=== PATIENT | male | born 1950 | race Caucasian/White ===

== ENCOUNTER 2017-03-17 11:51 | Emergency (ER) | payer MEDICARE, MEDICAID ==
[2017-03-17 12:03] VITALS: RESP 18; TEMP 98.3; O2SAT 96; BMI 28.0
--- NOTE | 2017-03-17 13:03 | ED PDOC ---
Arrival/HPI - General Chief Complaint: Trauma Time Seen by Provider: 03/17/17 12:10 Historian: Patient EM Caveat: Other (Poor historian) - History of Present Illness Narrative History of Present Illness (Text): 03/17/17 13:03 66 year old male whose past medical history includes hypertension, diabetes presents to the emergency department for fall at skilled nursing yesterday. As per EMS, patient has a history of CVA with right sided hemiparesis. Patient is a poor historian and unable to provide further history. Time/Duration: 24 hours Symptom Onset: Gradual Past Medical History - Provider Review Nursing Documentation Reviewed: Yes - Infectious Disease Hx of Infectious Diseases: None - Tetanus Immunization Tetanus Immunization: Unknown - Cardiac Hx Cardiac Disorders: Yes Hx Hypertension: Yes - Pulmonary Hx Respiratory Disorders: No - Neurological Hx Neurological Disorder: Yes HX Cerebrovascular Accident: Yes Hx Paralysis: Yes Other/Comment: Aphasia. Epilepsy - HEENT Hx HEENT Disorder: No - Renal Hx Renal Disorder: No - Endocrine/Metabolic Hx Endocrine Disorders: Yes (iddm) Hx Diabetes Mellitus Type 2: Yes - Hematological/Oncological Hx Blood Disorders: No - Integumentary Hx Dermatological Disorder: No - Musculoskeletal/Rheumatological Hx Musculoskeletal Disorders: Yes (right side paralysis) - Gastrointestinal Hx Gastrointestinal Disorders: Yes Hx Gall Bladder Disease: Yes (cholecystitis) - Genitourinary/Gynecological Hx Genitourinary Disorders: No - Psychiatric Hx Psychophysiologic Disorder: No Hx Substance Use: No - Anesthesia Hx Anesthesia Reactions: No - Suicidal Assessment Feels Threatened In Home Enviroment: No Family/Social History - Physician Review Nursing Documentation Reviewed: Yes Family/Social History: Unknown Family HX Smoking Status: Unknown If Ever Smoked Hx Alcohol Use: No Hx Substance Use: No Allergies/Home Meds Allergies/Adverse Reactions: Allergies No Known Allergies Allergy (Verified 08/30/13 15:37) Home Medications: Home Meds Medication Instructions Recorded Confirmed Aspirin [Aspirin Chewable] 81 mg PO DAILY 08/30/13 09/12/13 Atorvastatin [Lipitor] 10 mg PO DIN 08/30/13 09/12/13 Glipizide 5 mg PO DAILY 08/30/13 09/12/13 Insulin Glargine,Hum.rec.anlog 52 unit [facility] 08/30/13 09/12/13 [Lantus] Metoprolol Tartrate 50 mg PO QPM 08/30/13 09/12/13 Metoprolol Tartrate 100 mg PO QAM 08/30/13 09/12/13 Review of Systems - Review of Systems Systems not reviewed;Unavailable: Other (Poor historian) Physical Exam - Physical Exam Narrative Physical Exam (Text): - Physical exam Patient appears age appropriate - Systems Exam Head: Present: Superficial abrasion to posterior occiput, Normocephalic Pupils: Present: PERRL Extraocular Muscles: Present: EOMI Conjunctiva: Present: Normal Mouth: Present: Moist Mucous Membranes Neck: Present: Normal Range of Motion. No: MIDLINE TENDERNESS, Paraspinal Tenderness Respiratory/Chest: Present: Clear to Auscultation, Good Air Exchange. No: Respiratory Distress, Accessory Muscle Use, Tachypnic Cardiovascular: Present: Regular Rate and Rhythm, Normal S1, S2, Peripheral Pulses Present. No: Murmurs Abdomen: Present: Normal Bowel Sounds, No: Tenderness, Peritoneal Signs, Rebound, Guarding, Distention Back: Present: Normal Inspection. No: Midline Tenderness, Paraspinal Tenderness Upper Extremity: Present: Normal Inspection. No: Cyanosis, Edema Lower Extremity: Present: Normal Inspection. No: Edema Neurological: Present: GCS=15, Speech Normal, Right sided hemiparesis (old as per EMS), following commmands without difficulty. Skin: Present: Warm, Dry, Normal Color. No: Rashes Lymphatic: Present: OX3, NI, NC Psychiatric: Present: Alert Vital Signs Reviewed: Yes Vital Signs Temp Pulse Resp BP Pulse Ox 03/17/17 13:07 64 18 168/65 H 96 03/17/17 12:01 98.3 F 66 18 172/68 H 96 Temperature: Afebrile Blood Pressure: Hypertensive Pulse: Regular Respiratory Rate: Normal Appearance: Positive for: Well-Appearing, Non-Toxic, Comfortable Pain Distress: None Medical Decision Making ED Course and Treatment: Impression: 66 year old male whose past medical history includes hypertension, diabetes presents to the emergency department for fall at skilled nursing yesterday. On physical exam, patient has superficial abrasion to posterior occiput, right sided hemiparesis (old as per EMS). Plan: -- CT Head w/o contrast, EKG, Chest X-ray -- Labs -- Reassess and disposition Prior Visits: Notes and results from previous visits were reviewed. Patient last seen in the ED on 08/30/13 for chest pain and shortness of breath, admitted for Chest Pain, Unstable Angina, Hyperglycemia Progress Notes: EKG shows NSR at [address] segment elevations, lateral and precordial t- wave inversions, no changes vs 09/13/13 Chest X-ray read by me shows no pneumothorax, no pneumonia, no cardiomegaly, no infiltrates; No changes vs 08/30/13 PROCEDURE: CT HEAD WITHOUT CONTRAST. Animation Producer : Pippa Hollins MD IMPRESSION: 1. No acute intracranial abnormality. 2. 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 3. Moderate chronic microangiopathic changes. Moderate global parenchymal volume loss, slightly advanced for the patient's age. 03/17/17 14:[address] Herndon in detail, states to dc pt back to outpatient care facility pt in no distress and denies complaints at this time - Lab Interpretations Lab Results: 03/17/17 13:00 03/17/17 13:00 Lab Results 03/17/17 13:00: Sodium 141, Potassium 4.5, Chloride 102, Carbon Dioxide 29, Anion Gap 15, BUN 18, Creatinine 0.9, Est GFR ( Amer) > 60, Est GFR (Non- Af Amer) > 60, Random Glucose 169 H, Calcium 9.6, Total Bilirubin 0.8, AST 24, ALT 51, Alkaline Phosphatase 105, Total Protein 7.9, Albumin 4.1, Globulin 3.8, Albumin/Globulin Ratio 1.1 03/17/17 13:00: PT 10.8, INR 1.00, APTT 32.2 H 03/17/17 13:00: WBC 9.1, RBC 4.71, Hgb 14.5, Hct 42.7, MCV 90.7, MCH 30.8, MCHC 34.0, RDW 13.5, Plt Count 215, MPV 11.2 H, Gran % 61.6, Lymph % (Auto) 31.8, [place] % (Auto) 4.1, Eos % (Auto) 2.3, Baso % (Auto) 0.2, Gran # 5.58, Lymph # 2.9 , [place] # 0.4, Eos # 0.2, Baso # 0.02 - RAD Interpretation Radiology Orders: 03/17/17 12:21 HEAD W/O CONTRAST [CT] Stat CHEST ONE VIEW [RAD] Stat - EKG Interpretation Interpreted by ED Physician: Yes Type: 12 lead EKG - Scribe Statement The provider has reviewed the documentation as recorded by the Galilea Mendoza Provider Scribe Attestation: All medical record entries made by the Chrisibe were at my direction and personally dictated by me. I have reviewed the chart and agree that the record accurately reflects my personal performance of the history, physical exam, medical decision making, and the department course for this patient. I have also personally directed, reviewed, and agree with the discharge instructions and disposition. Disposition/Present on Arrival - Present on Arrival Any Indicators Present on Arrival: No History of DVT/PE: No History of Uncontrolled Diabetes: Yes Urinary Catheter: No History of Decub. Ulcer: No History Surgical Site Infection Following: None - Disposition Have Diagnosis and Disposition been Completed?: Yes Diagnosis: Fall Disposition: HOME/ ROUTINE Disposition Time: 14:35 Patient Plan: Discharge Condition: STABLE Discharge Instructions (ExitCare): Head Injury (ED) Additional Instructions: PLEASE RETURN TO THE EMERGENCY DEPARTMENT FOR NEW OR WORSENING SYMPTOMS. RETURN RIGHT AWAY IF YOU CANNOT FOLLOW UP WITH YOUR PRIMARY CARE DOCTOR, CLINIC, OR SPECIALIST IN 1-2 DAYS. Referrals: Tramaine Herndon MD [Primary Care Provider] - Follow up with primary
[2017-03-17 13:29] LABS: ADD MANUAL DIFF? NO
[2017-03-17 13:41] LABS: ALB/GLOB RATIO 1.1 (1.1-1.8); ALKALINE PHOSPHATASE 105 U/L (38-133); ALT/SGPT 51 U/L (7-56); AST/SGOT 24 U/L (15-59); BILIRUBIN,TOTAL 0.8 mg/dL (0.2-1.3); BLOOD UREA NITROGEN 18 mg/dL (7-21); CALCIUM 9.6 mg/dL (8.4-10.5); CARBON DIOXIDE 29 mmol/L (21-33); CHLORIDE 102 mmol/L (98-107); GFR AFRICAN-AMERICAN > 60; GLUCOSE,RANDOM 169 mg/dL (70-110); POTASSIUM 4.5 mmol/L (3.6-5.0); SODIUM 141 mmol/L (132-148); TOTAL PROTEIN 7.9 g/dL (5.8-8.3)
[2017-03-17 13:48] LABS: BASO # 0.02 K/mm3 (0.0-2.0); BASO % 0.2 % (0.0-3.0); EOS # 0.2 (0.0-0.7); EOS % 2.3 % (1.5-5.0); GRAN # 5.58 (1.4-6.5); GRAN % 61.6 % (50.0-68.0); HEMATOCRIT 42.7 % (42.0-52.0); LYMPH # 2.9 (1.2-3.4); LYMPH % 31.8 % (22.0-35.0); MEAN CELL VOLUME 90.7 fL (80.0-105.0); MEAN CORPUSCULAR HEMOGLOBIN 30.8 pg (25.0-35.0); MEAN PLATELET VOLUME 11.2 fl (7.0-11.0); MONO # 0.4 (0.1-0.6); MONO % 4.1 % (1.0-6.0); PLATELET COUNT 215 10^3/uL (120.0-450.0); RED CELL DISTRIBUTION WIDTH 13.5 % (11.5-14.5); WHITE BLOOD COUNT 9.1 10^3/ul (4.5-11.0)
--- NOTE | 2017-03-17 13:48 | CT ---
PROCEDURE: CT HEAD WITHOUT CONTRAST. HISTORY: Fall COMPARISON: None available. TECHNIQUE: Axial computed tomography images were obtained through the head/brain without intravenous contrast. Radiation dose: Total exam DLP = 734.52 mGy-cm. This CT exam was performed using one or more of the following dose reduction techniques: Automated exposure control, adjustment of the mA and/or kV according to patient size, and/or use of iterative reconstruction technique. FINDINGS: HEMORRHAGE: No intracranial hemorrhage. BRAIN: There is a large left frontal and parietal lobe, and basal ganglia cystic encephalomalacia with volume loss and ex vacuo dilatation of the left lateral ventricle. There is Wallerian degeneration of the pyramidal tract. There are moderate chronic microangiopathic changes. There is no mass, mass effect or abnormal extra-axial fluid collection. VENTRICLES: There is moderate global parenchymal volume loss and proportionate enlargement of the ventricles and cortical sulci. CALVARIUM: There is no calvarial fracture or extracranial soft tissue swelling. PARANASAL SINUSES: There is mild left frontal, scattered ethmoid and mild left maxillary mucosal thickening. MASTOID AIR CELLS: Predominantly clear. OTHER FINDINGS: None. IMPRESSION: 1. No acute intracranial abnormality. 2. 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 3. Moderate chronic microangiopathic changes. Moderate global parenchymal volume loss, slightly advanced for the patient's age.
[2017-03-17 13:53] LABS: PARTIAL THROMBOPLASTIN TIME 32.2 Seconds (23.7-30.8)
[2017-03-17 15:49] VITALS: BP 165/67; PULSE 65
--- NOTE | 2017-03-17 15:57 | RAD ---
PROCEDURE: CHEST RADIOGRAPH, 1 VIEW HISTORY: Cough COMPARISON: 08/30/2013. FINDINGS: LUNGS: The lungs are well inflated and clear. PLEURA: No pneumothorax or pleural fluid seen. CARDIOVASCULAR: Normal. OSSEOUS STRUCTURES: No significant abnormalities. VISUALIZED UPPER ABDOMEN: Normal. OTHER FINDINGS: None. IMPRESSION: No active pulmonary disease.
--- NOTE | 2017-03-17 17:08 | CARD ---
APPROVED REPORT EKG Measurement Heart [id number] <Conclusion> Normal sinus rhythm Possible Left atrial enlargement ST & T wave abnormality, consider anterolateral ischemia Prolonged QT Abnormal ECG
== END 2017-03-17 16:18 | disposition home or self-care (01) ==
LOC: ED 11:51
DX: S09.90XA Unspecified injury of head, initial encounter (principal); W19.XXXA Unspecified fall, initial encounter; I69.351 Hemiplegia and hemiparesis following cerebral infarction affecting right dominant side; I10 Essential (primary) hypertension; E11.9 Type 2 diabetes mellitus without complications; Z79.4 Long term (current) use of insulin

== ENCOUNTER 2017-10-15 12:23 | Emergency (ER) | payer MEDICARE, MEDICAID ==
[2017-10-15 12:24] VITALS: BMI 28.0
[2017-10-15 12:41] VITALS: RESP 18; TEMP 98; O2SAT 98
[2017-10-15 14:04] LABS: BASO # 0.03 K/mm3 (0.0-2.0); BASO % 0.3 % (0.0-3.0); EOS # 0.2 (0.0-0.7); GRAN # 5.73 (1.4-6.5); GRAN % 63.8 % (50.0-68.0); HEMATOCRIT 43.9 % (42.0-52.0); LYMPH # 2.6 (1.2-3.4); LYMPH % 29.3 % (22.0-35.0); MEAN CELL VOLUME 92.8 fl (80.0-105.0); MEAN CORPUSCULAR HEMOGLOBIN 31.5 pg (25.0-35.0); MEAN CORPUSCULAR HGB CONC 33.9 g/dl (31.0-37.0); MEAN PLATELET VOLUME 11.6 fl (7.0-11.0); MONO # 0.4 (0.1-0.6); MONO % 4.6 % (1.0-6.0); RED CELL DISTRIBUTION WIDTH 13.8 % (11.5-14.5)
[2017-10-15 14:44] LABS: ALB/GLOB RATIO 1.2 (1.1-1.8); BILIRUBIN,TOTAL 0.8 mg/dL (0.2-1.3); CALCIUM 9.7 mg/dL (8.4-10.5); GFR AFRICAN-AMERICAN > 60; GLUCOSE,RANDOM 184 mg/dL (70-110); TOTAL PROTEIN 7.9 g/dL (5.8-8.3)
[2017-10-15 14:55] LABS: TROPONIN I 0.02 ng/mL
--- NOTE | 2017-10-15 15:24 | CT ---
PROCEDURE: CT HEAD WITHOUT CONTRAST. HISTORY: head trauma COMPARISON: Noncontrast head CT performed 03/17/17 TECHNIQUE: Axial computed tomography images were obtained through the head/brain without intravenous contrast. Radiation dose: Total exam DLP = 803.39 mGy-cm. This CT exam was performed using one or more of the following dose reduction techniques: Automated exposure control, adjustment of the mA and/or kV according to patient size, and/or use of iterative reconstruction technique. FINDINGS: HEMORRHAGE: No intracranial hemorrhage. BRAIN: Diffuse atrophy with prominence of the ventricles and sulci noted. There is a large left frontal and parietal lobe, and basal ganglia cystic encephalomalacia with volume loss and ex vacuo dilatation of the left lateral ventricle. There are moderate chronic microangiopathic changes. There is no midline shift, mass effect or abnormal extra-axial fluid collection. VENTRICLES: No hydrocephalus. CALVARIUM: Unremarkable. PARANASAL SINUSES: Unremarkable as visualized. No significant inflammatory changes. MASTOID AIR CELLS: Unremarkable as visualized. No inflammatory changes. OTHER FINDINGS: None. 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 Moderate chronic microangiopathic changes. Moderate global parenchymal volume loss, slightly advanced for the patient's age.
--- NOTE | 2017-10-15 15:35 | CT ---
CT maxillofacial bones without IV contrast Indication: Facial trauma Comparison: None Technique: Axial computed tomography images were obtained of the maxillofacial bones without the use of intravenous contrast. Coronal and sagittal reformatted images were generated and reviewed. This CT exam was performed using 1 or more of the falling dose reduction techniques: Automated exposure control, adjustment of the MAA and/or kV according to patient size, and/or use of iterative reconstruction technique. Radiation dose: Total exam DLP = 943.88 mGy-cm. Findings: Right frontal and preseptal soft tissue swelling. The facial bones appear intact without acute displaced fracture. The orbits appear unremarkable. The temporomandibular joints appear located. Mucosal thickening of the ethmoid air cells, left frontal sinus and bilateral maxillary sinuses. No air-fluid levels evident. Please refer to CT head performed concurrently for detailed explanation of intracranial findings. Sub cm submental lymph nodes, nonspecific. Impression: Right frontal and preseptal soft tissue swelling. Paranasal sinus mucosal thickening as above.
[2017-10-15 15:36] LABS: ALKALINE PHOSPHATASE 93 U/L (38-126); ALT/SGPT 50 U/L (7-56); AST/SGOT 31 U/L (17-59); BLOOD UREA NITROGEN 26 mg/dL (7-21); CARBON DIOXIDE 24 mmol/L (21-33); CHLORIDE 106 mmol/L (98-107); POTASSIUM 5.3 mmol/L (3.6-5.0); SODIUM 138 mmol/L (132-148)
--- NOTE | 2017-10-15 15:39 | CT ---
CT cervical spine without IV contrast Indication: Fall Comparison: None available Technique: Axial computed tomography images were obtained of the cervical spine without the use of intravenous contrast. Coronal and sagittal reformatted images were created and reviewed. This CT exam was performed using 1 or more of the falling dose reduction techniques: Automated exposure control, adjustment of the MAA and/or kV according to patient size, and/or use of iterative reconstruction technique. Radiation dose: Total exam DLP = 558.96 mGy-cm. Findings: Straightening of the normal cervical lordosis may be related to muscle spasm or positioning. Multilevel degenerative changes including intervertebral disc space narrowing and osteophyte formation. There is no evidence of acute fracture or subluxation. The prevertebral soft tissues and spinolaminar lines appear intact. The lateral masses are preserved. The dens tip is intact. There is proper alignment of the lateral masses of C1 with the C2 vertebral body. Included portions of the thyroid gland appear unremarkable. Limited included portions of lung apices demonstrates emphysematous changes. Impression: Straightening of the normal cervical lordosis may be related to muscle spasm or positioning. No evidence of acute fracture or subluxation.
--- NOTE | 2017-10-15 16:46 | ED PDOC ---
Arrival/HPI - General Chief Complaint: Trauma Time Seen by Provider: 10/15/17 12:40 Historian: Patient - History of Present Illness Narrative History of Present Illness (Text): 10/15/17 16:43 67 y/o male with hx of CVA with right hemiparesis and aphasia is BIBA from [facility] after pt fell at 9 am in the morning. As per EMS note, it was an unwitnessed fall. Pt is an unreliable historian. no further details can be derived from the patient. Past Medical History - Provider Review Nursing Documentation Reviewed: Yes - Travel History Have you recently traveled outside [place] w/in the past 3 mons?: No - Past History Past History: Non-Contributing - Infectious Disease Hx of Infectious Diseases: None - Tetanus Immunization Tetanus Immunization: Unknown - Cardiac Hx Cardiac Disorders: Yes Hx Hypertension: Yes - Pulmonary Hx Respiratory Disorders: No - Neurological Hx Neurological Disorder: Yes HX Cerebrovascular Accident: Yes Hx Paralysis: Yes Other/Comment: Aphasia. Epilepsy - HEENT Hx HEENT Disorder: No - Renal Hx Renal Disorder: No - Endocrine/Metabolic Hx Endocrine Disorders: Yes (iddm) Hx Diabetes Mellitus Type 2: Yes - Hematological/Oncological Hx Blood Disorders: No - Integumentary Hx Dermatological Disorder: No - Musculoskeletal/Rheumatological Hx Musculoskeletal Disorders: Yes (right side paralysis) - Gastrointestinal Hx Gastrointestinal Disorders: Yes Hx Gall Bladder Disease: Yes (cholecystitis) - Genitourinary/Gynecological Hx Genitourinary Disorders: No - Psychiatric Hx Psychophysiologic Disorder: No Hx Substance Use: No - Anesthesia Hx Anesthesia: Yes Hx Anesthesia Reactions: No Hx Malignant Hyperthermia: No - Suicidal Assessment Feels Threatened In Home Enviroment: No Family/Social History - Physician Review Nursing Documentation Reviewed: Yes Family/Social History: Unknown Family HX Smoking Status: Unknown If Ever Smoked Hx Alcohol Use: No Hx Substance Use: No Allergies/Home Meds Allergies/Adverse Reactions: Allergies No Known Allergies Allergy (Verified 08/30/13 15:37) Home Medications: Home Meds Medication Instructions Recorded Confirmed Aspirin [Aspirin Chewable] 81 mg PO DAILY 08/30/13 10/15/17 Atorvastatin [Lipitor] 10 mg PO DIN 08/30/13 10/15/17 Insulin Glargine,Hum.rec.anlog 52 unit [facility] 08/30/13 10/15/17 [Lantus] Review of Systems - Physician Review All systems were reviewed & negative as marked: Yes - Review of Systems Constitutional: absent: Fevers Respiratory: absent: SOB Cardiovascular: Other (chest wall pain) Gastrointestinal: absent: Abdominal Pain, Nausea, Vomiting Musculoskeletal: Neck Pain Skin: Other (abrasion on right forehead and cheek) Neurological: absent: Headache Physical Exam Vital Signs Reviewed: Yes Vital Signs Temp Pulse Resp BP Pulse Ox 10/15/17 19:21 56 L 18 128/68 98 10/15/17 12:37 98.0 F 62 18 148/70 98 Temperature: Afebrile Blood Pressure: Hypertensive Pulse: Regular Respiratory Rate: Normal Appearance: Positive for: Well-Appearing, Non-Toxic Pain Distress: Mild Mental Status: Positive for: Alert and Oriented X 3 - Systems Exam Head: Present: Tenderness, Contusion (above right eyebrow and on right cheek) Pupils: Present: PERRL Extroacular Muscles: Present: EOMI Conjunctiva: Present: Normal Ears: Present: Normal, NORMAL TM Neck: Present: MIDLINE TENDERNESS Respiratory/Chest: Present: Clear to Auscultation, Tender to Palpation Cardiovascular: Present: Regular Rate and Rhythm Abdomen: No: Tenderness Genitourinary Male: Present: Other Back: Present: Normal Inspection Upper Extremity: Present: Normal Inspection Lower Extremity: Present: Normal Inspection, Other (unable to move right lower extremity due to hemiparesis, nontender hips) Skin: Present: Abrasion (right cheek and above right eyebwrow) Psychiatric: Present: Alert Medical Decision Making ED Course and Treatment: 10/15/17 Chest XR, CT scan head , face and spine to rule out fracture or bleed. Negative results. Pt is sleeping comfortably in the ED. Pt was also reassessed by Dr. Keane. No further testing necessary. Discussed case with Dr. Fung who's covering for Dr. Herndon. Dr. Fung agrees to send pt back to the skilled nursing and to follow up as outpt. Reassessment Condition: Improved - Lab Interpretations Lab Results: 10/15/17 13:30 10/15/17 14:15 Lab Results 10/15/17 14:15: Sodium 138, Potassium 5.3 H, Chloride 106, Carbon Dioxide 24, Anion Gap 13, BUN 26 H, Creatinine 0.9, Est GFR ( Amer) > 60, Est GFR ( Non-Af Amer) > 60, Random Glucose 184 H, Calcium 9.7, Total Bilirubin 0.8, AST 31, ALT 50, Alkaline Phosphatase 93, Troponin I 0.02, Total Protein 7.9, Albumin 4.2, Globulin 3.7, Albumin/Globulin Ratio 1.2 10/15/17 13:30: WBC 9.0, RBC 4.73, Hgb 14.9, Hct 43.9, MCV 92.8, MCH 31.5, MCHC 33.9, RDW 13.8, Plt Count 239, MPV 11.6 H, Gran % 63.8, Lymph % (Auto) 29.3, [place] % (Auto) 4.6, Eos % (Auto) 2.0, Baso % (Auto) 0.3, Gran # 5.73, Lymph # 2.6 , [place] # 0.4, Eos # 0.2, Baso # 0.03 - RAD Interpretation Radiology Orders: 10/15/17 12:52 HEAD W/O CONTRAST [CT] Stat 10/15/17 12:59 CERVICAL SPINE W/O CONTRAST [CT] Stat MAXILLOFACIAL W/O CONTRAST [CT] Stat 10/15/17 13:17 CHEST TWO VIEWS (PA/LAT) [RAD] Stat - Medication Orders Current Medication Orders: Discontinued Medications Acetaminophen (Tylenol 325mg Tab) 975 mg PO STAT STA Stop: 10/15/17 13:16 Last Admin: 10/15/17 14:27 Dose: 975 mg MAR Pain/Vitals Document 10/15/17 14:27 EQ (Rec: 10/15/17 14:29 EQ [id number]) Pain Reassessment Is This A Pain ReAssessment? No Sleep Is patient sleeping during reassessment? No Presence of Pain Presence of Pain Yes Pain Scale Used Pain Scale Used Numeric Disposition/Present on Arrival - Present on Arrival Any Indicators Present on Arrival: No History of DVT/PE: No History of Uncontrolled Diabetes: Yes Urinary Catheter: No History of Decub. Ulcer: No History Surgical Site Infection Following: None - Disposition Have Diagnosis and Disposition been Completed?: Yes Diagnosis: Contusion of face, Head injury due to trauma Disposition: HOME/ ROUTINE Disposition Time: 19:02 Patient Plan: Discharge Patient Problems: Current Active Problems Problem Status Onset Contusion of face Acute Head injury due to trauma Acute Condition: STABLE Discharge Instructions (ExitCare): Head Injury (ED), Contusion in Adults (GEN) Print Language: LATVIAN Additional Instructions: Take Tylenol as needed for pain. Follow up with PCP in 3 days for reassessment. Return to the ED if symptoms worsen or if new concerning symptoms develop. Referrals: PCP,NO [Primary Care Provider] - Follow up with primary
[2017-10-15 19:22] VITALS: PULSE 56
[2017-10-15 20:51] VITALS: BP 140/64
--- NOTE | 2017-10-15 21:44 | CARD ---
APPROVED REPORT EKG Measurement Heart [id number] <Conclusion> Poor data quality, interpretation may be adversely affected Sinus bradycardia Possible Left atrial enlargement T wave abnormality, consider lateral ischemia Prolonged QT Abnormal ECG
--- NOTE | 2017-10-16 09:40 | RAD ---
HISTORY: fall COMPARISON: Chest x-ray performed 03/17/17 TECHNIQUE: Chest PA and lateral FINDINGS: Suboptimal lateral view is patient's arm was not elevated. Examination limited by habitus. LUNGS: No focal consolidation. Please note that chest x-ray has limited sensitivity for the detection of pulmonary masses. PLEURA: No significant pleural effusion identified. No definite pneumothorax . CARDIOVASCULAR: The cardiomediastinal silhouette appears within normal limits of size. OSSEOUS STRUCTURES: No acute osseous abnormality identified. VISUALIZED UPPER ABDOMEN: Unremarkable. OTHER FINDINGS: None. IMPRESSION: No focal consolidation, significant pleural effusion, or definite pneumothorax identified.
== END 2017-10-15 20:50 | disposition home or self-care (01) ==
LOC: ED 12:23
DX: S00.83XA Contusion of other part of head, initial encounter (principal); W19.XXXA Unspecified fall, initial encounter; Y92.129 Unspecified place in nursing home as the place of occurrence of the external cause; I10 Essential (primary) hypertension; E11.9 Type 2 diabetes mellitus without complications; Z79.4 Long term (current) use of insulin; Z86.73 Personal history of transient ischemic attack (TIA), and cerebral infarction without residual deficits

== ENCOUNTER 2018-01-20 09:54 | Emergency (ER) | payer MEDICARE, MEDICAID ==
[2018-01-20 09:54] VITALS: BMI 28.0
[2018-01-20] MEDS ORDERED: TDAP Vaccine 0.5 mL Syr IM ONE (10:17)
[2018-01-20 10:18] VITALS: RESP 18; TEMP 98.1
[2018-01-20] MEDS ORDERED: Labetalol 5 mg/ml Inj 20ML IV STA (10:19)
--- NOTE | 2018-01-20 10:30 | ED PDOC ---
Arrival/HPI - General Chief Complaint: Trauma Time Seen by Provider: 01/20/18 10:00 Historian: Patient, Care Home ([facility]), EMS - History of Present Illness Narrative History of Present Illness (Text): 01/20/18 10:10 67 year old male, whose past medical history includes hypertension, diabetes, CVA (right sided weakness) aphasia, who presents to the emergency department via EMS complaining of right shoulder and face pain s/p fall at [facility]. Per [facility], witness, Bobby Amin, states he saw the patient fall slowly off his wheelchair to the right side, landing on shoulder and face. Patient is a limited historian who answers yes and no, with head movement as well. No other complaints were made. PMD: Dr. Meehan Time/Duration: Prior to Arrival Symptom Onset: Sudden Symptom Course: Unchanged Activities at Onset: Light Context: Home Past Medical History - Provider Review Nursing Documentation Reviewed: Yes - Past History Past History: Non-Contributing - Infectious Disease Hx of Infectious Diseases: None - Tetanus Immunization Tetanus Immunization: Unknown - Cardiac Hx Cardiac Disorders: Yes Hx Hypertension: Yes - Pulmonary Hx Respiratory Disorders: No - Neurological Hx Neurological Disorder: Yes HX Cerebrovascular Accident: Yes (Rt side weakness) Hx Paralysis: Yes Other/Comment: Aphasia. Epilepsy - HEENT Hx HEENT Disorder: No - Renal Hx Renal Disorder: No - Endocrine/Metabolic Hx Endocrine Disorders: Yes (iddm) Hx Diabetes Mellitus Type 2: Yes - Hematological/Oncological Hx Blood Disorders: No - Integumentary Hx Dermatological Disorder: No - Musculoskeletal/Rheumatological Hx Musculoskeletal Disorders: Yes (right side paralysis) - Gastrointestinal Hx Gastrointestinal Disorders: Yes Hx Gall Bladder Disease: Yes (cholecystitis) - Genitourinary/Gynecological Hx Genitourinary Disorders: No - Psychiatric Hx Psychophysiologic Disorder: No Hx Substance Use: No - Anesthesia Hx Anesthesia: Yes Hx Anesthesia Reactions: No Hx Malignant Hyperthermia: No - Suicidal Assessment Feels Threatened In Home Enviroment: No Family/Social History - Physician Review Nursing Documentation Reviewed: Yes Family/Social History: Unknown Family HX Smoking Status: Unknown If Ever Smoked Hx Alcohol Use: No Hx Substance Use: No Allergies/Home Meds Allergies/Adverse Reactions: Allergies No Known Allergies Allergy (Verified 01/20/18 10:04) Home Medications: Home Meds Medication Instructions Recorded Confirmed Aspirin [Aspirin Chewable] 81 mg PO DAILY 08/30/13 01/20/18 Atorvastatin [Lipitor] 10 mg PO DIN 08/30/13 01/20/18 Insulin Glargine,Hum.rec.anlog 52 unit SC 08/30/13 01/20/18 [Lantus] Baclofen [Lioresal] 5 mg PO BID 01/20/18 01/20/18 Clopidogrel [Plavix] 75 mg PO DAILY 01/20/18 01/20/18 Escitalopram [Lexapro] 20 mg PO DAILY 01/20/18 01/20/18 GlipiZIDE [Glucotrol] 5 mg PO DAILY 01/20/18 01/20/18 Melatonin [Melatonin] 2 mg PO HS 01/20/18 01/20/18 Metoprolol Succinate [Toprol XL] 50 mg PO QPM 01/20/18 01/20/18 Metoprolol Tartrate [Lopressor] 100 mg PO QAM 01/20/18 01/20/18 Pregabalin [Lyrica] 150 mg PO HS 01/20/18 01/20/18 levETIRAcetam [Keppra] 500 mg PO BID 01/20/18 01/20/18 Review of Systems - Review of Systems Constitutional: absent: Fevers ENT: absent: Sinus Congestion Respiratory: absent: SOB Cardiovascular: absent: Chest Pain Gastrointestinal: absent: Abdominal Pain Genitourinary Male: absent: Dysuria Musculoskeletal: Other (right side shoulder pain and face. ). absent: Back Pain Skin: Other (abrasions ) Endocrine: absent: Diaphoresis Physical Exam Vital Signs Reviewed: Yes Vital Signs Temp Pulse Resp BP Pulse Ox 01/20/18 13:00 66 18 165/79 H 98 01/20/18 11:07 65 18 165/79 H 99 01/20/18 10:58 57 L 207/75 H 01/20/18 09:54 98.1 F 61 18 207/75 H 98 Temperature: Afebrile Blood Pressure: Hypertensive Pulse: Regular Respiratory Rate: Normal Appearance: Positive for: Well-Appearing, Non-Toxic, Comfortable Pain Distress: None Mental Status: Positive for: Alert and Oriented X 3 - Systems Exam Head: Present: Atraumatic, Normocephalic Pupils: Present: PERRL Extroacular Muscles: Present: EOMI Conjunctiva: Present: Normal Mouth: Present: Moist Mucous Membranes Respiratory/Chest: Present: Clear to Auscultation, Good Air Exchange. No: Respiratory Distress, Accessory Muscle Use, Wheezes, Rales, Retracting, Rhonchi Cardiovascular: Present: Regular Rate and Rhythm, Normal S1, S2. No: Murmurs Abdomen: Present: Normal Bowel Sounds. No: Tenderness, Distention, Peritoneal Signs, Rebound, Guarding Back: Present: Normal Inspection. No: Paraspinal Tenderness, Pain with Leg Raise Upper Extremity: Present: Normal Inspection. No: Cyanosis, Edema, Neurovascularly Intact (right sided weakness) Neurological: Present: GCS=15, CN II-XII Intact, Speech Normal. No: Normal Sensory Function (decreased sensation right upper arm) Skin: Present: Warm, Dry, Normal Color, Abrasion (right side of forehead and right side of forearm). No: Rashes Psychiatric: Present: Alert, Oriented x 3, Normal Insight, Normal Concentration Medical Decision Making ED Course and Treatment: 01/20/18 Impression: 67 year old male with abrasions on right side of forehead and forearm s/p fall. Differential Diagnosis included but are not limited to: Mechanical fall r/o ICH r/o fracture Plan: -- CT cervical spine -- CT head without contrast -- Chest X-ray -- EKG -- Labs -- Boostrix, Trandate, Tylenol -- Urinalysis -- Right elbow x-ray -- Right forearm x-ray -- Right shoulder x-ray -- Reassess and disposition Progress Notes: 01/20/18 11:20 EKG: Ordered, reviewed, and independently interpreted the EKG. Rate : 58 BPM Rhythm : sinus bradycardia Interpretation : ST depressions. T-wave inversions. AVL. No ST-segment elevations Comparison : 10/15/2017 01/20/18 12:[address]: Creator : Kelby Acosta MD COMPARISON: 10/15/2017 FINDINGS: HEMORRHAGE: No intracranial hemorrhage. BRAIN: No mass effect or edema. Stable large left frontal parietal infarct with dilatation of the left lateral ventricle. VENTRICLES: Unremarkable. No hydrocephalus. CALVARIUM: Unremarkable. PARANASAL SINUSES: Unremarkable as visualized. No significant inflammatory changes. MASTOID AIR CELLS: Unremarkable as visualized. No inflammatory changes. OTHER FINDINGS: None. IMPRESSION: Stable large left frontal parietal infarct with dilatation of the left lateral ventricle. 01/20/18 12:[address]: Creator : Kelby Acosta MD COMPARISON: 10/15/2017 FINDINGS: VERTEBRAE: No fracture. Normal alignment. No destructive bony lesion. DISCS/SPINAL CANAL/NEURAL FORAMINA: No significant central canal or neural foraminal stenosis. Multilevel lower cervical disc space narrowing and spondylosis with anterior spur formation. No acute fracture. PARASPINAL SOFT TISSUES: Unremarkable. OTHER FINDINGS: None. IMPRESSION: Multilevel lower cervical disc space narrowing and spondylosis with anterior spur formation. No acute fracture. Patient was treated with Labetolol for elevated blood pressure and Insulin for elevated glucose. CT reviewed with no acute infarct or bleed. CT Cervical with no fracture. Xrays of right arm were negative for fracture. Patient stable throughout ED stay. BP improved. FS improved. Patient comfortable and denies any pain. Wounds cleaned and bacitracin applied. Dr. Fung knows patient and called to give some input. He agrees that if everything is negative and patient is improving he can go back to the [facility]. Patient Improved in the ED. Will discharge back to the [facility]. - Lab Interpretations Lab Results: 01/20/18 10:50 01/20/18 10:50 Lab Results 01/20/18 13:40: Urine Color Yellow, Urine Appearance Clear, Urine pH 6.0, Ur Specific [place] 1.020, Urine Protein Negative, Urine Glucose (UA) >=1000, Urine Ketones Negative, Urine Blood Trace-lysed H, Urine Nitrate Negative, Urine Bilirubin Negative, Urine Urobilinogen 0.2, Ur Leukocyte Esterase Negative , Urine RBC 0 - 2, Urine WBC 0 - 2, Ur Epithelial Cells 1 - 3, Urine Bacteria Trace 01/20/18 10:50: Sodium 140, Potassium 5.3 H, Chloride 104, Carbon Dioxide 25, Anion Gap 16, BUN 23 H, Creatinine 0.9, Est GFR ( Amer) > 60, Est GFR ( Non-Af Amer) > 60, Random Glucose 301 H* D, Calcium 10.5, Magnesium 1.9, Total Bilirubin 0.5, AST 28, ALT 47, Alkaline Phosphatase 105, Total Creatine Kinase 85, Total Protein 7.6, Albumin 4.2, Globulin 3.4, Albumin/Globulin Ratio 1.2 01/20/18 10:50: WBC 8.7, RBC 5.07, Hgb 15.9, Hct 47.0, MCV 92.7, MCH 31.4, MCHC 33.8, RDW 13.5, Plt Count 198, MPV 11.4 H, Gran % 69.5 H, Lymph % (Auto) 24.2, [place] % (Auto) 4.6, Eos % (Auto) 1.5, Baso % (Auto) 0.2, Gran # 6.03, Lymph # ( Auto) 2.1, [place] # (Auto) 0.4, Eos # (Auto) 0.1, Baso # (Auto) 0.02 I have reviewed the lab results: Yes - RAD Interpretation Radiology Orders: 01/20/18 10:16 CHEST ONE VIEW [RAD] Stat ELBOW RIGHT 3 VIEWS ROUTINE [RAD] Stat SHOULDER RIGHT [RAD] Stat 01/20/18 10:17 HEAD W/O CONTRAST [CT] Stat FOREARM RIGHT [RAD] Stat 01/20/18 10:18 CERVICAL SPINE W/O CONTRAST [CT] Stat Realty Specialist: Radiologist - EKG Interpretation Interpreted by ED Physician: Yes Type: 12 lead EKG - Medication Orders Current Medication Orders: Discontinued Medications Acetaminophen (Tylenol 325mg Tab) 975 mg PO STAT STA Stop: 01/20/18 10:18 Last Admin: 01/20/18 10:57 Dose: 975 mg MAR Pain/Vitals Document 01/20/18 10:57 EWO (Rec: 01/20/18 10:57 [facility] [id number]) Pain Reassessment Is This A Pain ReAssessment? No Sleep Is patient sleeping during reassessment? No Presence of Pain Presence of Pain No Pain Scale Used Pain Scale Used Numeric Location Left, Right or Bilateral Right Pain Location Body Site Shoulder Description Intermittent Intensity 4 Scale Used Numeric Pain Behavior Guarding Insulin Human Regular (Humulin R) 5 units SC STAT STA Stop: 01/20/18 12:17 Last Admin: 01/20/18 12:49 Dose: 5 units MAR Blood Glucose Document 01/20/18 12:49 EWO (Rec: 01/20/18 12:50 [facility] [id number]) Blood Glucose Finger Stick Blood Glucose (70-120) 301 Subcutaneous Administrations Document 01/20/18 12:49 EWO (Rec: 01/20/18 12:50 [facility] [id number]) Injection Site MAR Injection Site Left Deltoid Charges for Administration # of Subcutaneous Administrations 1 Labetalol HCl (Trandate) 20 mg IV STAT STA Stop: 01/20/18 10:20 Last Admin: 01/20/18 10:58 Dose: 20 mg eMAR Start Stop Document 01/20/18 10:58 EWO (Rec: 01/20/18 10:59 O [id number]) Intravenous Solution Start Date 01/20/18 Start Time 10:58 End Date 01/20/18 End time 11:00 Total Infusion Time 2 MAR Pulse and Blood Pressure Document 01/20/18 10:58 EWO (Rec: 01/20/18 10:59 O [id number]) Pulse Pulse Rate (60-90) 57 Blood Pressure Blood Pressure (100/60-150/90) 207/75 Tetanus/Reduced Diphtheria/Acell Pertussis (Boostrix Vaccine Inj) 0.5 ml IM .ONCE ONE Stop: 01/20/18 10:18 Last Admin: 01/20/18 10:57 Dose: 0.5 ml Immunization Registry Document 01/20/18 10:57 EWO (Rec: 01/20/18 10:57 [facility] [id number]) Immunization Registry Consent Date 09/24/17 - Scribe Statement The provider has reviewed the documentation as recorded by the Galilea Mcneil Provider Scribe Attestation: All medical record entries made by the Scribe were at my direction and personally dictated by me. I have reviewed the chart and agree that the record accurately reflects my personal performance of the history, physical exam, medical decision making, and the department course for this patient. I have also personally directed, reviewed, and agree with the discharge instructions and disposition. Disposition/Present on Arrival - Present on Arrival Any Indicators Present on Arrival: Yes History of DVT/PE: No History of Uncontrolled Diabetes: Yes Urinary Catheter: No History of Decub. Ulcer: No History Surgical Site Infection Following: None - Disposition Have Diagnosis and Disposition been Completed?: Yes Diagnosis: Fall, Hyperglycemia, Hypertension Disposition: HOME/ ROUTINE Disposition Time: 15:03 Patient Plan: Discharge Condition: IMPROVED Discharge Instructions (ExitCare): Hyperglycemia, Adult, Preventing Falls in the Older Adult, High Blood Pressure (DC) Additional Instructions: Mahesh, thank you for letting us take care of you today. Your provider was Dr. Kaur You were treated for Hyperglycemia, Hypertension, Fall. The emergency medical care you received today was directed at your acute symptoms. If you were prescribed any medication, please fill it and take as directed. It may take several days for your symptoms to resolve. Return to the Emergency Department if your symptoms worsen, do not improve, or if you have any other problems. Please contact your doctor or call one of the physicians/clinics you have been referred to that are listed on the Patient Visit Information form that is included in your discharge packet. Bring any paperwork you were given at discharge with you along with any medications you are taking to your follow up visit. Our treatment cannot replace ongoing medical care by a primary care provider (PCP) outside of the emergency department. Thank you for allowing the [facility] team to be part of your care today. If you had an X-Ray or CT scan: A Radiologist will review the ED reading if any change in treatment is needed we will contact you. If you had a blood, urine, or wound culture: It will take several days for the results, if any change in treatment is needed we will contact you. If you had an STI test: It will take 48 hours for the results. Please call after 1 week if you have not heard back. Referrals: Jeff Meehan MD [Primary Care Provider] - Follow up with primary Forms: [employer] ([place])
[2018-01-20 11:01] LABS: BASO # 0.02 K/mm3 (0.0-2.0); BASO % 0.2 % (0.0-3.0); EOS # 0.1 (0.0-0.7); EOS % 1.5 % (1.5-5.0); GRAN # 6.03 (1.4-6.5); GRAN % 69.5 % (50.0-68.0); HEMOGLOBIN 15.9 g/dL (14.0-18.0); LYMPH # 2.1 (1.2-3.4); LYMPH % 24.2 % (22.0-35.0); MEAN CELL VOLUME 92.7 fl (80.0-105.0); MEAN CORPUSCULAR HEMOGLOBIN 31.4 pg (25.0-35.0); MEAN CORPUSCULAR HGB CONC 33.8 g/dl (31.0-37.0); MEAN PLATELET VOLUME 11.4 fl (7.0-11.0); MONO # 0.4 (0.1-0.6); MONO % 4.6 % (1.0-6.0); RBC 5.07 10^6/uL (3.5-6.1); RED CELL DISTRIBUTION WIDTH 13.5 % (11.5-14.5); WHITE BLOOD COUNT 8.7 10^3/ul (4.5-11.0)
[2018-01-20 11:07] VITALS: BP 165/79
[2018-01-20 11:33] LABS: ALB/GLOB RATIO 1.2 (1.1-1.8); ALBUMIN 4.2 g/dL (3.0-4.8); ALT/SGPT 47 U/L (7-56); AST/SGOT 28 U/L (17-59); BLOOD UREA NITROGEN 23 mg/dL (7-21); CALCIUM 10.5 mg/dL (8.4-10.5); GFR AFRICAN-AMERICAN > 60; GFR NON-AFRICAN AMERICAN > 60
--- NOTE | 2018-01-20 11:47 | CT ---
PROCEDURE: CT HEAD WITHOUT CONTRAST. HISTORY: fall r/o ich COMPARISON: 10/15/2017 TECHNIQUE: Axial computed tomography images were obtained through the head/brain without intravenous contrast. Radiation dose: Total exam DLP = mGy-cm. This CT exam was performed using one or more of the following dose reduction techniques: Automated exposure control, adjustment of the mA and/or kV according to patient size, and/or use of iterative reconstruction technique. FINDINGS: HEMORRHAGE: No intracranial hemorrhage. BRAIN: No mass effect or edema. Stable large left frontal parietal infarct with dilatation of the left lateral ventricle. VENTRICLES: Unremarkable. No hydrocephalus. CALVARIUM: Unremarkable. PARANASAL SINUSES: Unremarkable as visualized. No significant inflammatory changes. MASTOID AIR CELLS: Unremarkable as visualized. No inflammatory changes. OTHER FINDINGS: None. IMPRESSION: Stable large left frontal parietal infarct with dilatation of the left lateral ventricle.
--- NOTE | 2018-01-20 11:49 | CT ---
PROCEDURE: CT Cervical Spine without contrast HISTORY: <fall r/o fx> COMPARISON: 10/15/2017 TECHNIQUE: Axial computed tomography images were obtained of the cervical spine without the use of intravenous contrast. Coronal and sagittal reformatted images were created and reviewed. Radiation dose: Total exam DLP = mGy-cm. This CT exam was performed using one or more of the following dose reduction techniques: Automated exposure control, adjustment of the mA and/or kV according to patient size, and/or use of iterative reconstruction technique. FINDINGS: VERTEBRAE: No fracture. Normal alignment. No destructive bony lesion. DISCS/SPINAL CANAL/NEURAL FORAMINA: No significant central canal or neural foraminal stenosis. Multilevel lower cervical disc space narrowing and spondylosis with anterior spur formation. No acute fracture. PARASPINAL SOFT TISSUES: Unremarkable. OTHER FINDINGS: None. IMPRESSION: Multilevel lower cervical disc space narrowing and spondylosis with anterior spur formation. No acute fracture.
[2018-01-20] MEDS ORDERED: Insulin Regular 1 UNITS/0.01 ML ML SC STA (12:16)
--- NOTE | 2018-01-20 12:30 | RAD ---
PROCEDURE: CHEST RADIOGRAPH, 1 VIEW HISTORY: fall r/o fx COMPARISON: None available. FINDINGS: LUNGS: Clear. PLEURA: No pneumothorax or pleural fluid seen. CARDIOVASCULAR: Normal. OSSEOUS STRUCTURES: No significant abnormalities. VISUALIZED UPPER ABDOMEN: Normal. OTHER FINDINGS: None. IMPRESSION: No active disease.
--- NOTE | 2018-01-20 12:32 | RAD ---
PROCEDURE: Radiographs of the Right Shoulder HISTORY: fall r/o fx COMPARISON: No prior. FINDINGS: BONES: Normal. No fracture. JOINTS: Normal. Glenohumeral and acromioclavicular joints preserved. No osteoarthritis. SOFT TISSUES: Normal. OTHER FINDINGS: None. IMPRESSION: Normal radiographs of the right shoulder.
--- NOTE | 2018-01-20 12:38 | RAD ---
PROCEDURE: Radiographs of the Right Forearm HISTORY: fall r/o fx COMPARISON: None available. TECHNIQUE: Frontal and lateral views obtained. FINDINGS: BONES: No fracture or destructive lesion. JOINT SPACES: Unremarkable. OTHER FINDINGS: None. IMPRESSION: Unremarkable radiographs of the right forearm.
--- NOTE | 2018-01-20 12:39 | RAD ---
PROCEDURE: Radiographs of the right elbow. HISTORY: fall r/o fx COMPARISON: No prior. FINDINGS: BONES: Normal. No fracture. JOINTS: Normal. No osteoarthritis. SOFT TISSUES: Normal. JOINT EFFUSION: None. OTHER FINDINGS: None. IMPRESSION: Unremarkable radiographs of the right elbow.
[2018-01-20 13:41] VITALS: PULSE 66; O2SAT 98
[2018-01-20 13:46] LABS: URINE APPEARANCE CLEAR (CLEAR); URINE BILIRUBIN NEGATIVE (NEGATIVE); URINE BLOOD TRACE-LYSED (NEGATIVE); URINE COLOR YELLOW (YELLOW); URINE GLUCOSE (UA) >=1000 mg/dL (NEGATIVE); URINE LEUKOCYTE ESTERASE NEGATIVE Leu/uL (NEGATIVE); URINE PROTEIN NEGATIVE mg/dL (<30 mg/dL); URINE UROBILINOGEN 0.2 E.U./dL (<1 E.U./dL)
[2018-01-20 14:03] LABS: URINE BACTERIA TRACE (NEG); URINE RBC 0 - 2 /hpf (0-2); URINE WBC 0 - 2 /hpf (0-6)
--- NOTE | 2018-01-20 17:27 | CARD ---
APPROVED REPORT EKG Measurement Heart [id number] CT [id number] <Conclusion> Sinus bradycardia Possible Left atrial enlargement ST & Marked T wave abnormality, consider anterolateral ischemia Prolonged QT Abnormal ECG
== END 2018-01-20 15:04 | disposition home or self-care (01) ==
LOC: ED 09:54
DX: I10 Essential (primary) hypertension (principal); E11.65 Type 2 diabetes mellitus with hyperglycemia; W19.XXXA Unspecified fall, initial encounter; Y92.129 Unspecified place in nursing home as the place of occurrence of the external cause; Z86.73 Personal history of transient ischemic attack (TIA), and cerebral infarction without residual deficits; Z79.4 Long term (current) use of insulin; Z23 Encounter for immunization

== ENCOUNTER 2018-03-18 16:45 | Emergency (ER) | payer MEDICARE, MEDICAID ==
[2018-03-18 17:20] VITALS: RESP 18; TEMP 98.9; O2SAT 96
[2018-03-18 18:15] VITALS: BMI 31.1
[2018-03-18 19:21] VITALS: BP 130/69; PULSE 63
--- NOTE | 2018-03-18 19:28 | CT ---
EXAM: CT Cervical Spine Without Intravenous Contrast EXAM DATE/TIME: 03/18/2018 5:24 PM CLINICAL HISTORY: 67 years old, male; Injury or trauma; Fall; Initial encounter; Sprain or strain, cervical ligaments TECHNIQUE: Axial computed tomography images of the cervical spine without intravenous contrast. All CT scans at this facility use one or more dose reduction techniques, viz.: automated exposure control; ma/kV adjustment per patient size (including targeted exams where dose is matched to indication; i.e. head); or iterative reconstruction technique. Coronal and sagittal reformatted images were created and reviewed. COMPARISON: CT - CERVICAL SPINE W/O CONTRAST 2018-01-20 11:23 FINDINGS: Vertebrae: There is slight straightening of the cervical lordosis. There is no prevertebral soft tissue swelling. There are no fractures. There is multilevel degenerative change. There is narrowing of the predental space. There is disc space narrowing at multiple levels greatest at C5/C6 and C6/C7. There is minimal retrolisthesis C2 on C3. Osteophyte formation is greatest C5/C6/C7. Facet joints align anatomically. Spinous processes align in the expected fashion. Bone mineralization is normal. Discs/spinal canal/neural foramina: See above. Soft tissues: See above. Thyroid: Thyroid is not optimally demonstrated. Lung apices: There is minimal paraseptal emphysematous change of the lung apices IMPRESSION: Degenerative change, no fracture
--- NOTE | 2018-03-18 19:33 | ED PDOC ---
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 his bed?? in an unwitnessed fall. Pt complains of pain to the right side of his body/rt hip /rt thingh , although ablto passively range with little facial grimace. pt is pleasant smiling and well appearing . Time/Duration: Prior to Arrival Symptom Onset: Sudden Symptom Course: Unchanged Past Medical History - Provider Review Nursing Documentation Reviewed: Yes - Past History Past History: Non-Contributing - Infectious Disease Hx of Infectious Diseases: None - Tetanus Immunization Tetanus Immunization: Unknown - Cardiac Hx Cardiac Disorders: Yes Hx Hypertension: Yes - Pulmonary Hx Respiratory Disorders: No - Neurological Hx Neurological Disorder: Yes HX Cerebrovascular Accident: Yes (Rt side weakness) Hx Paralysis: Yes Other/Comment: Aphasia. Epilepsy - HEENT Hx HEENT Disorder: No - Renal Hx Renal Disorder: No - Endocrine/Metabolic Hx Endocrine Disorders: Yes (iddm) Hx Diabetes Mellitus Type 2: Yes - Hematological/Oncological Hx Blood Disorders: No - Integumentary Hx Dermatological Disorder: No - Musculoskeletal/Rheumatological Hx Musculoskeletal Disorders: Yes (right side paralysis) - Gastrointestinal Hx Gastrointestinal Disorders: Yes Hx Gall Bladder Disease: Yes (cholecystitis) - Genitourinary/Gynecological Hx Genitourinary Disorders: No - Psychiatric Hx Psychophysiologic Disorder: No Hx Substance Use: No - Anesthesia Hx Anesthesia: Yes Hx Anesthesia Reactions: No Hx Malignant Hyperthermia: No - Suicidal Assessment Feels Threatened In Home Enviroment: No Family/Social History - Physician Review Nursing Documentation Reviewed: Yes Family/Social History: No Known Family HX Smoking Status: Unknown If Ever Smoked Hx Alcohol Use: No Hx Substance Use: No Allergies/Home Meds Allergies/Adverse Reactions: Allergies No Known Allergies Allergy (Verified 01/20/18 10:04) Home Medications: Home Meds Medication Instructions Recorded Confirmed Aspirin [Aspirin Chewable] 81 mg PO DAILY 08/30/13 01/20/18 Atorvastatin [Lipitor] 10 mg PO DIN 08/30/13 01/20/18 Insulin Glargine,Hum.rec.anlog 52 unit SC HS 08/30/13 01/20/18 [Lantus] Baclofen [Lioresal] 5 mg PO BID 01/20/18 01/20/18 Clopidogrel [Plavix] 75 mg PO DAILY 01/20/18 01/20/18 Escitalopram [Lexapro] 20 mg PO DAILY 01/20/18 01/20/18 GlipiZIDE [Glucotrol] 5 mg PO DAILY 01/20/18 01/20/18 Melatonin [Melatonin] 2 mg PO HS 01/20/18 01/20/18 Metoprolol Succinate [Toprol XL] 50 mg PO QPM 01/20/18 01/20/18 Metoprolol Tartrate [Lopressor] 100 mg PO QAM 01/20/18 01/20/18 Pregabalin [Lyrica] 150 mg PO HS 01/20/18 01/20/18 levETIRAcetam [Keppra] 500 mg PO BID 01/20/18 01/20/18 Review of Systems - Physician Review All systems were reviewed & negative as marked: Yes - Review of Systems Systems not reviewed;Unavailable: Acuity of Condition Constitutional: Normal Musculoskeletal: Arthralgias Physical Exam Vital Signs Temp Pulse Resp BP Pulse Ox 03/18/18 19:21 63 18 130/69 96 03/18/18 17:19 98.9 F 72 18 146/69 96 Temperature: Afebrile Blood Pressure: Normal Pulse: Regular Respiratory Rate: Normal Appearance: Positive for: Well-Appearing, Non-Toxic, Comfortable Pain Distress: None Mental Status: Positive for: other (alert) - Systems Exam Head: Present: Atraumatic, Normocephalic Pupils: Present: PERRL Extroacular Muscles: Present: EOMI Conjunctiva: Present: Normal Mouth: Present: Moist Mucous Membranes Neck: Present: Normal Range of Motion Respiratory/Chest: Present: Clear to Auscultation, Good Air Exchange. No: Respiratory Distress, Accessory Muscle Use Cardiovascular: Present: Regular Rate and Rhythm, Normal S1, S2. No: Murmurs Abdomen: Present: Other (soft, nt, nd, bs throughout ). No: Tenderness, Distention, Peritoneal Signs Back: Present: Normal Inspection Upper Extremity: Present: Normal Inspection. No: Cyanosis, Edema Lower Extremity: Present: Normal Inspection, Other (full PROM ACORSS ALL LE JOINTS, ABEIT W/ MILD PAIN ELICITED IN KNEE JOINT / RT HIP JOPINT ). No: Edema Neurological: Present: GCS=15, CN II-XII Intact, Other (rt side hemiparesis/ hemiparasthesiae) Skin: Present: Warm, Dry, Normal Color. No: Rashes Psychiatric: Present: Alert, Oriented x 3, Normal Insight, Normal Concentration Medical Decision Making ED Course and Treatment: 67 Y/O APHASIC WHEELCHAOR BUND , NNAMBULATORY aLARIS NHR P/W UNWITNESSED FALL . R/O Acute ic trauma with head ct r/o other bony trama in tender joints aforementoined and trauma series syncope w/u screen as likley pt slipped/slumped from wheelchair , screen for occult ischemia/infection ekg : NSR @62 BPM TWI IN i, ii, aVL, v4-v6 all old relative to old ekg's on file 03/18/18 19:38 03/18/18 19:41 signed out at he end of my shift to Dr. Portillo to f/u labs and imaging . - RAD Interpretation Radiology Orders: 03/18/18 17:24 CERVICAL SPINE W/O CONTRAST [CT] Stat HEAD W/O CONTRAST [CT] Stat 03/18/18 17:26 CHEST PORTABLE [RAD] Stat 03/18/18 17:27 PELVIS ONE VIEW [RAD] Stat - Medication Orders Current Medication Orders: Discontinued Medications Acetaminophen (Tylenol 325mg Tab) 650 mg PO STAT STA Stop: 03/18/18 17:30 Last Admin: 03/18/18 18:52 Dose: 650 mg MAR Pain/Vitals Document 03/18/18 18:52 SH (Rec: 03/18/18 18:53 SH [id number]) Pain Reassessment Is This A Pain ReAssessment? No Sleep Is patient sleeping during reassessment? No Presence of Pain Presence of Pain Yes Disposition/Present on Arrival - Present on Arrival Any Indicators Present on Arrival: Yes History of DVT/PE: No History of Uncontrolled Diabetes: Yes Urinary Catheter: No History of Decub. Ulcer: No History Surgical Site Infection Following: None - Disposition Have Diagnosis and Disposition been Completed?: Yes Diagnosis: Fall Disposition Time: 19:43 Condition: GOOD Forms: [facility] (Luxembourgish)
--- NOTE | 2018-03-18 19:34 | CT ---
EXAM: CT Head Without Intravenous Contrast EXAM DATE/TIME: 03/18/2018 5:24 PM CLINICAL HISTORY: 67 years old, male; Injury or trauma; Fall; Initial encounter; Sprain or strain TECHNIQUE: Axial computed tomography images of the head/brain without intravenous contrast. All CT scans at this facility use one or more dose reduction techniques, viz.: automated exposure control; ma/kV adjustment per patient size (including targeted exams where dose is matched to indication; i.e. head); or iterative reconstruction technique. Coronal and sagittal reformatted images were created and reviewed. COMPARISON: CT - HEAD W/O CONTRAST 2018-01-20 11:20 FINDINGS: Brain: Ventricles continue to be mildly dilated. There is slightly greater compensatory dilatation of the left lateral ventricle, unchanged. There is no midline shift. There is old left MCA distribution infarct with encephalomalacia in left frontal, temporal and parietal lobes. There is decrease attenuation in periventricular white matter. There are no focal hemorrhages. There are no focal masses. Jimenez-white differentiation is visualized. Ventricles: See above Bones/joints: Cranial vault is intact. Soft tissues: unremarkable Sinuses: There is no acute sinusitis. Ears and mastoids: Middle ears and mastoids are unremarkable. Orbits: Orbital contents are unremarkable. IMPRESSION: Old left MCA distribution infarct, no acute intracranial abnormality
[2018-03-18 19:49] LABS: BASO # 0.02 K/mm3 (0.0-2.0); BASO % 0.2 % (0.0-3.0); EOS # 0.2 (0.0-0.7); EOS % 2.6 % (1.5-5.0); GRAN # 5.43 (1.4-6.5); GRAN % 58.4 % (50.0-68.0); HEMOGLOBIN 14.2 g/dL (14.0-18.0); LYMPH # 3.2 (1.2-3.4); LYMPH % 34.6 % (22.0-35.0); MEAN CELL VOLUME 91.8 fl (80.0-105.0); MEAN CORPUSCULAR HEMOGLOBIN 30.5 pg (25.0-35.0); MEAN CORPUSCULAR HGB CONC 33.3 g/dl (31.0-37.0); MEAN PLATELET VOLUME 11.3 fl (7.0-11.0); MONO # 0.4 (0.1-0.6); MONO % 4.2 % (1.0-6.0); PARTIAL THROMBOPLASTIN TIME 37.1 Seconds (25.1-36.5); PROTHROMBIN TIME 11.4 SECONDS (9.4-12.5); RBC 4.65 10^6/uL (3.5-6.1); RED CELL DISTRIBUTION WIDTH 13.4 % (11.5-14.5); WHITE BLOOD COUNT 9.3 10^3/ul (4.5-11.0)
[2018-03-18 19:54] LABS: ALB/GLOB RATIO 1.4 (1.1-1.8); ALBUMIN 4.1 g/dL (3.0-4.8); ALT/SGPT 41 U/L (7-56); AST/SGOT 23 U/L (17-59); BLOOD UREA NITROGEN 31 mg/dL (7-21); CALCIUM 9.6 mg/dL (8.4-10.5); GFR AFRICAN-AMERICAN > 60; GFR NON-AFRICAN AMERICAN > 60
[2018-03-18 20:06] LABS: TROPONIN I 0.02 ng/mL
--- NOTE | 2018-03-18 22:10 | ED PDOC ---
Physical Exam - Physical Exam Narrative Physical Exam (Text): 03/18/18 19:15 Case endorsed to me by Dr. Verde for pending CT, X-ray and lab results. 67 year old male presents to the Emergency department today for apparent unwitnessed mechanical fall from his wheelchair at the [facility]. Patient has a history of CVA, right sided hemiparesis. Patient is currently stable and denies any new complaints. Vital Signs Reviewed: Yes Vital Signs Temp Pulse Resp BP Pulse Ox 03/18/18 19:21 63 18 130/69 96 03/18/18 17:19 98.9 F 72 18 146/69 96 Temperature: Afebrile Blood Pressure: Normal Pulse: Regular Respiratory Rate: Normal Appearance: Positive for: Well-Appearing Pain Distress: None Mental Status: Positive for: other (alert) - Systems Exam Head: Present: Atraumatic, Normocephalic Pupils: Present: PERRL Extroacular Muscles: Present: EOMI Conjunctiva: Present: Normal Ears: Present: NORMAL TM Respiratory/Chest: Present: Clear to Auscultation, Good Air Exchange. No: Respiratory Distress, Accessory Muscle Use Cardiovascular: Present: Regular Rate and Rhythm, Normal S1, S2. No: Murmurs Abdomen: No: Tenderness, Distention, Peritoneal Signs Back: Present: Normal Inspection Upper Extremity: Present: Normal Inspection. No: Cyanosis, Edema Lower Extremity: Present: Normal Inspection. No: Edema Neurological: Present: GCS=15, CN II-XII Intact, Normal Sensory Function, Other (right sided hemiparesis) Skin: Present: Warm, Dry, Normal Color. No: Rashes Psychiatric: Present: Alert Medical Decision Making ED Course and Treatment: 03/18/18 19:15 Progress Notes: 03/18/18 19:40 Chest X-ray reviewed, shows no acute processes. 03/18/18 19:40 X-ray of pelvis reviewed, shows no acute fracture. 03/18/18 22:16 Discuss[address] case with PMD Dr. Fung, who is aware and agrees with Emergency department management plan. As per Dr. Fung, patient presents apparently with mechanical fall. No loss of consciousness as per [facility]. Recommends patient to be discharged home and instructions to follow-up in his office. 03/18/18 22:38 CT of Cervical Spine reviewed by radiologist, shows: FINDINGS: Vertebrae: There is slight straightening of the cervical lordosis. There is no prevertebral soft tissue swelling. There are no fractures. There is multilevel degenerative change. There is narrowing of the predental space. There is disc space narrowing at multiple levels greatest at C5 /C6 and C6/C7. There is minimal retrolisthesis C2 on C3. Osteophyte formation is greatest C5/C6/C7. Facet joints align anatomically. Spinous processes align in the expected fashion. Bone mineralization is normal. Discs/spinal canal/neural foramina: See above. Soft tissues: See above. Thyroid: Thyroid is not optimally demonstrated. Lung apices: There is minimal paraseptal emphysematous change of the lung apices IMPRESSION: Degenerative change, no fracture. 03/18/18 22:38 CT of head reviewed by radiologist, shows: FINDINGS: Brain: Ventricles continue to be mildly dilated. There is slightly greater compensatory dilatation of the left lateral ventricle, unchanged. There is no midline shift. There is old left MCA distribution infarct with encephalomalacia in left frontal, temporal and parietal lobes. There is decrease attenuation in periventricular white matter. There are no focal hemorrhages. There are no focal masses. Jimenez-white differentiation is visualized. Ventricles: See above Bones/joints: Cranial vault is intact. Soft tissues: unremarkable Sinuses: There is no acute sinusitis. Ears and mastoids: Middle ears and mastoids are unremarkable. Orbits: Orbital contents are unremarkable. IMPRESSION: Old left MCA distribution infarct, no acute intracranial abnormality - Lab Interpretations Lab Results: 03/18/18 19:20 03/18/18 19:20 Lab Results 03/18/18 19:20: Sodium 142, Potassium 4.8, Chloride 107, Carbon Dioxide 24, Anion Gap 17, BUN 31 H, Creatinine 1.2, Est GFR ( Amer) > 60, Est GFR ( Non-Af Amer) > 60, Random Glucose 260 H, Calcium 9.6, Total Bilirubin 0.2, AST 23, ALT 41, Alkaline Phosphatase 104, Lactate Dehydrogenase 404, Total Creatine Kinase 77, Troponin I 0.02, Total Protein 7.1, Albumin 4.1, Globulin 3.0, Albumin/Globulin Ratio 1.4 03/18/18 19:20: PT 11.4, INR 1.00, APTT 37.1 H 03/18/18 19:20: WBC 9.3, RBC 4.65, Hgb 14.2, Hct 42.7, MCV 91.8, MCH 30.5, MCHC 33.3, RDW 13.4, Plt Count 199, MPV 11.3 H, Gran % 58.4, Lymph % (Auto) 34.6, [place] % (Auto) 4.2, Eos % (Auto) 2.6, Baso % (Auto) 0.2, Gran # 5.43, Lymph # ( Auto) 3.2, [place] # (Auto) 0.4, Eos # (Auto) 0.2, Baso # (Auto) 0.02 - RAD Interpretation Radiology Orders: 03/18/18 17:24 CERVICAL SPINE W/O CONTRAST [CT] Stat HEAD W/O CONTRAST [CT] Stat 03/18/18 17:26 CHEST PORTABLE [RAD] Stat 03/18/18 17:27 PELVIS ONE VIEW [RAD] Stat Testing Engineer: ED Physician - Medication Orders Current Medication Orders: Discontinued Medications Acetaminophen (Tylenol 325mg Tab) 650 mg PO STAT STA Stop: 03/18/18 17:30 Last Admin: 03/18/18 18:52 Dose: 650 mg MAR Pain/Vitals Document 03/18/18 18:52 SH (Rec: 03/18/18 18:53 SH [id number]) Pain Reassessment Is This A Pain ReAssessment? No Sleep Is patient sleeping during reassessment? No Presence of Pain Presence of Pain Yes - Scribe Statement The provider has reviewed the documentation as recorded by the Scribe Hillary Jimenez. All medical record entries made by the Scribe were at my direction and personally dictated by me. I have reviewed the chart and agree that the record accurately reflects my personal performance of the history, physical exam, medical decision making, and the department course for this patient. I have also personally directed, reviewed, and agree with the discharge instructions and disposition. Disposition/Present on Arrival - Present on Arrival Any Indicators Present on Arrival: Yes History of DVT/PE: No History of Uncontrolled Diabetes: Yes Urinary Catheter: No History of Decub. Ulcer: No History Surgical Site Infection Following: None - Disposition Have Diagnosis and Disposition been Completed?: Yes Diagnosis: Fall Disposition: TRANSF TO SNF Disposition Time: 23:20 Patient Plan: Discharge Condition: GOOD Discharge Instructions (ExitCare): Preventing Falls in the Older Adult Additional Instructions: Follow up with PMD this week Forms: [facility] (Burmese)
--- NOTE | 2018-03-19 08:21 | RAD ---
HISTORY: r/o fracture COMPARISON: 01/20/2018 FINDINGS: LUNGS: No active pulmonary disease. PLEURA: No significant pleural effusion identified, no pneumothorax apparent. CARDIOVASCULAR: Normal. OSSEOUS STRUCTURES: No significant abnormalities. VISUALIZED UPPER ABDOMEN: Normal. OTHER FINDINGS: None. IMPRESSION: No active disease.
--- NOTE | 2018-03-19 09:22 | RAD ---
PROCEDURE: Radiographs of the pelvis. HISTORY: fall COMPARISON: None. FINDINGS: BONES: Pelvic Bones: Unremarkable. Hips: There is severe joint space narrowing in both hips. JOINTS: Sacroiliac Joints: Unremarkable. Pubic Symphysis: Unremarkable. OTHER FINDINGS: None. IMPRESSION: No acute fracture
--- NOTE | 2018-03-19 15:21 | CARD ---
APPROVED REPORT EKG Measurement Heart [id number] <Conclusion> Normal sinus rhythm ST & T wave abnormality, consider lateral ischemia Prolonged QT Abnormal ECG
== END 2018-03-18 23:45 ==
LOC: ED 16:45
DX: Z04.3 Encounter for examination and observation following other accident (principal); W19.XXXA Unspecified fall, initial encounter; Y92.129 Unspecified place in nursing home as the place of occurrence of the external cause; I10 Essential (primary) hypertension; Z86.73 Personal history of transient ischemic attack (TIA), and cerebral infarction without residual deficits; E11.9 Type 2 diabetes mellitus without complications; Z79.4 Long term (current) use of insulin

== ENCOUNTER 2018-10-01 16:02 | Emergency (ER) | payer MEDICARE, MEDICAID ==
[2018-10-01 16:35] VITALS: BMI 27.6
--- NOTE | 2018-10-01 17:13 | RAD ---
HISTORY: fall COMPARISON: Performed 03/18/18 TECHNIQUE: Chest, one view. FINDINGS: Examination limited by habitus. LUNGS: No focal consolidation. Please note that chest x-ray has limited sensitivity for the detection of pulmonary masses. PLEURA: No significant pleural effusion identified. No definite pneumothorax . CARDIOVASCULAR: Borderline cardiomegaly. No significant atherosclerotic calcification present. OSSEOUS STRUCTURES: No acute osseous abnormality identified. VISUALIZED UPPER ABDOMEN: Unremarkable. OTHER FINDINGS: None. IMPRESSION: No focal consolidation identified. Borderline cardiomegaly.
[2018-10-01 17:38] LABS: ALB/GLOB RATIO 1.2 (1.1-1.8); ALBUMIN 4.4 g/dL (3.0-4.8); ALT/SGPT 58 U/L (7-56); AST/SGOT 41 U/L (17-59); BLOOD UREA NITROGEN 30 mg/dL (7-21); CALCIUM 9.3 mg/dL (8.4-10.5); GFR NON-AFRICAN AMERICAN > 60; LIPASE 111 U/L (23-300)
[2018-10-01 17:49] LABS: TROPONIN I 0.03 ng/mL
--- NOTE | 2018-10-01 18:02 | ED PDOC ---
Arrival/HPI - General Chief Complaint: Trauma Time Seen by Provider: 10/01/18 16:28 Historian: Patient, Jail - History of Present Illness Narrative History of Present Illness (Text): 10/01/18 18:02 68yr old male with hx of cva presents today sent in by assisted for fall. per assisted pt was found on the ground on his knees. pt is non verbal but can answer yes or no. pt denies headache. denies neck pain. c/o abdominal pain, but unable to state whether pain is old or new or present currently. denies arthalgias. no other complaints. 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 Epilepsy - HEENT Hx HEENT Disorder: No - Renal Hx Renal Disorder: No - Endocrine/Metabolic Hx Endocrine Disorders: Yes (iddm) Hx Diabetes Mellitus Type 2: Yes - Hematological/Oncological Hx Blood Disorders: No - Integumentary Hx Dermatological Disorder: No - Musculoskeletal/Rheumatological Hx Musculoskeletal Disorders: Yes (right side paralysis) - Gastrointestinal Hx Gastrointestinal Disorders: Yes Hx Gall Bladder Disease: Yes (cholecystitis) - Genitourinary/Gynecological Hx Genitourinary Disorders: No - Psychiatric Hx Psychophysiologic Disorder: No Hx Substance Use: No - Anesthesia Hx Anesthesia: Yes Hx Anesthesia Reactions: No Hx Malignant Hyperthermia: No - Suicidal Assessment Feels Threatened In Home Enviroment: No Family/Social History - Physician Review Nursing Documentation Reviewed: Yes Family/Social History: Unknown Family HX Smoking Status: Unknown If Ever Smoked Hx Alcohol Use: No Hx Substance Use: No Allergies/Home Meds Allergies/Adverse Reactions: Allergies No Known Allergies Allergy (Verified 01/20/18 10:04) Home Medications: Home Meds Medication Instructions Recorded Confirmed Aspirin [Aspirin Chewable] 81 mg PO DAILY 08/30/13 01/20/18 Atorvastatin [Lipitor] 10 mg PO DIN 08/30/13 01/20/18 Insulin Glargine,Hum.rec.anlog 52 unit [facility] 08/30/13 01/20/18 [Lantus] Baclofen [Lioresal] 5 mg PO BID 01/20/18 01/20/18 Clopidogrel [Plavix] 75 mg PO DAILY 01/20/18 01/20/18 Escitalopram [Lexapro] 20 mg PO DAILY 01/20/18 01/20/18 GlipiZIDE [Glucotrol] 5 mg PO DAILY 01/20/18 01/20/18 Melatonin 2 mg PO HS 01/20/18 01/20/18 Metoprolol Succinate XL [Toprol XL] 50 mg PO QPM 01/20/18 01/20/18 Metoprolol Tartrate [Lopressor] 100 mg PO QAM 01/20/18 01/20/18 Pregabalin [Lyrica] 150 mg PO HS 01/20/18 01/20/18 levETIRAcetam [Keppra] 500 mg PO BID 01/20/18 01/20/18 Review of Systems - Review of Systems Constitutional: absent: Fatigue, Fevers Respiratory: absent: Cough Cardiovascular: absent: Chest Pain Gastrointestinal: Abdominal Pain. absent: Vomiting Musculoskeletal: absent: Arthralgias, Back Pain Neurological: absent: Headache Physical Exam Vital Signs Reviewed: Yes Vital Signs Temp Pulse Resp BP Pulse Ox 10/01/18 16:34 98.0 F 79 17 162/77 H 96 Temperature: Afebrile Blood Pressure: Hypertensive Pulse: Regular Respiratory Rate: Normal Appearance: Positive for: Well-Appearing, Non-Toxic, Comfortable Pain Distress: None Mental Status: Positive for: Alert and Oriented X 3 - Systems Exam Head: Present: Atraumatic Pupils: Present: PERRL Extroacular Muscles: Present: EOMI Mouth: Present: Moist Mucous Membranes Neck: Present: Normal Range of Motion. No: MIDLINE TENDERNESS, Paraspinal Tenderness Respiratory/Chest: Present: Clear to Auscultation, Good Air Exchange. No: Resp iratory Distress, Accessory Muscle Use Cardiovascular: Present: Regular Rate and Rhythm, Normal S1, S2. No: Murmurs Abdomen: Present: Tenderness (minimal left sided tenderness. no edema, no erythema; no ecchymosis). No: Distention, Peritoneal Signs, Rebound, Guarding Back: Present: Normal Inspection Upper Extremity: No: Tenderness Lower Extremity: No: Tenderness Skin: Present: Warm, Dry Psychiatric: Present: Alert Medical Decision Making ED Course and Treatment: 10/01/18 18:05 68yr old male with hx of prior cva with fall today in assisted. pt is alert with stable vitals in no distress. cbc; wnl cmp; bun; 30 trop; 0.03 ekg; normal sinus rhythm at 78 bpm normal axis by atrial enlargement no ST elevations cxr;FINDINGS: Examination limited by habitus. LUNGS: No focal consolidation. Please note that chest x-ray has limited sensitivity for the detection of pulmonary masses. PLEURA: No significant pleural effusion identified. No definite pneumothorax . CARDIOVASCULAR: Borderline cardiomegaly. No significant atherosclerotic calcification present. OSSEOUS STRUCTURES: No acute osseous abnormality identified. VISUALIZED UPPER ABDOMEN: Unremarkable. OTHER FINDINGS: None. IMPRESSION: No focal consolidation identified. Borderline cardiomegaly. head Ct: FINDINGS: HEMORRHAGE: No intracranial hemorrhage. BRAIN: Diffuse atrophy with prominence of the ventricles and sulci noted. No mass effect or edema. Re-identified chronic encephalomalacia within a left MCA distribution involving the left frontal, temporal, and parietal lobes. Moderate scattered periventricular and subcortical white matter hypodensities, which are nonspecific, but often seen with chronic microvascular ischemic disease. Please note that MRI with diffusion imaging is more sensitive in the detection of acute ischemic event. VENTRICLES: Mildly dilated ventricles. Compensatory dilatation of the left lateral ventricle as on prior study. CALVARIUM: Unremarkable. PARANASAL SINUSES: Unremarkable as visualized. No significant inflammatory changes. MASTOID AIR CELLS: Unremarkable as visualized. No inflammatory changes. OTHER FINDINGS: None. IMPRESSION: Extensive chronic left MCA distribution encephalomalacia. Acute on chronic infarction cannot be excluded. Please note that MRI with diffusion imaging is more sensitive in the detection of acute ischemic event. Moderate nonspecific matter changes. Mildly dilated ventricles. Compensatory dilatation of the left lateral ventricle as on prior study. Atrophy. abd/pelvis CT: FINDINGS: LUNG BASES: The lung bases appear clear. No pleural effusions are seen. LIVER: Unremarkable. GALLBLADDER AND BILE DUCTS: S/p cholecystectomy. Surgical clips are noted in the gallbladder fossa. PANCREAS: Unremarkable. SPLEEN: Unremarkable. ADRENAL GLANDS: Unremarkable. KIDNEYS, URETERS, AND BLADDER: 1.5 cm right renal cyst is noted. Bilateral renal vascular calcifications are noted. STOMACH AND BOWEL: Thick walled fluid filled duodenum and loops of jejunum as well as ileum compatible with enteritis. Infectious and inflammatory etiologies are considered. APPENDIX: No evidence of acute appendicitis on CT examination. PERITONEUM: No free fluid. No free air. LYMPH NODES: Multiple small retroperitoneal lymph nodes are noted, nonspecific. REPRODUCTIVE: Unremarkable as visualized. VASCULATURE: No evidence of abdominal aortic aneurysm. BONES: No aggressive appearing osseous lesion. No acute osseous pathology evident. IMPRESSION: 1. S/p cholecystectomy. 2. 1.5 cm right renal cyst is noted. 3. Multiple small retroperitoneal lymph nodes are noted, nonspecific. 4. Thick walled fluid filled duodenum and loops of jejunum as well as ileum compatible with enteritis. Infectious and inflammatory etiologies are considered. UA; trace blood; no leukocytes. 10/01/18 19:05 pt is non toxic well appearing; no distress; stable vitals. will d/c patient back to assisted. all aspects of this case were discussed the attending of record. impression; fall, enteritis f/u with PMD return if symptoms worsen, persist or if new symptoms develop. - Lab Interpretations Lab Results: 10/01/18 17:17 Lab Results 10/01/18 17:17: Sodium 142, Potassium 4.6, Chloride 104, Carbon Dioxide 27, Anion Gap 15, BUN 30 H, Creatinine 1.1, Est GFR ( Amer) > 60, Est GFR (Non-Af Amer) > 60, Random Glucose 177 H, Calcium 9.3, Total Bilirubin 0.3, AST 41, ALT 58 H, Alkaline Phosphatase 111, Lactate Dehydrogenase 480, Total Creatine Kinase 193, Troponin I 0.03 D, Total Protein 8.1, Albumin 4.4, Globulin 3.7, Albumin/Globulin Ratio 1.2, Lipase 111 - RAD Interpretation Radiology Orders: 10/01/18 16:39 CHEST PORTABLE [RAD] Stat 10/01/18 16:43 ABD & PELVIS W/O PO OR IV CONT [CT] Stat HEAD W/O CONTRAST [CT] Stat Disposition/Present on Arrival - Present on Arrival Any Indicators Present on Arrival: Yes History of DVT/PE: No History of Uncontrolled Diabetes: Yes Urinary Catheter: No History of Decub. Ulcer: No History Surgical Site Infection Following: None - Disposition Have Diagnosis and Disposition been Completed?: Yes Diagnosis: Fall, Enteritis Disposition: TRANSF TO SNF Disposition Time: 19:07 Patient Plan: Discharge Patient Problems: Current Active Problems Problem Status Onset Enteritis Acute Fall Acute Condition: GOOD Discharge Instructions (ExitCare): Preventing Falls Additional Instructions: f/u with PMD return if symptoms worsen, persist or if new symptoms develop. Forms: [employer] (Malagasy)
[2018-10-01 18:09] LABS: BASO # 0.01 K/mm3 (0.0-2.0); BASO % 0.1 % (0.0-3.0); EOS # 0.1 (0.0-0.7); EOS % 0.8 % (1.5-5.0); GRAN # 5.68 (1.4-6.5); GRAN % 76.8 % (50.0-68.0); HEMOGLOBIN 16.2 g/dL (14.0-18.0); LYMPH # 1.3 (1.2-3.4); MEAN CELL VOLUME 93.4 fl (80.0-105.0); MEAN CORPUSCULAR HEMOGLOBIN 31.5 pg (25.0-35.0); MEAN CORPUSCULAR HGB CONC 33.7 g/dl (31.0-37.0); MEAN PLATELET VOLUME 11.4 fl (7.0-11.0); MONO # 0.4 (0.1-0.6); MONO % 5.3 % (1.0-6.0); RBC 5.15 10^6/uL (3.5-6.1); RED CELL DISTRIBUTION WIDTH 13.8 % (11.5-14.5); WHITE BLOOD COUNT 7.4 10^3/uL (4.5-11.0)
--- NOTE | 2018-10-01 18:10 | CT ---
Date of service: 10/01/2018 PROCEDURE: CT HEAD WITHOUT CONTRAST. HISTORY: s/p fall COMPARISON: Noncontrast head CT performed 03/18/18 TECHNIQUE: Axial computed tomography images were obtained through the head/brain without intravenous contrast. Radiation dose: Total exam DLP = 1004.22 mGy-cm. This CT exam was performed using one or more of the following dose reduction techniques: Automated exposure control, adjustment of the mA and/or kV according to patient size, and/or use of iterative reconstruction technique. FINDINGS: HEMORRHAGE: No intracranial hemorrhage. BRAIN: Diffuse atrophy with prominence of the ventricles and sulci noted. No mass effect or edema. Re-identified chronic encephalomalacia within a left MCA distribution involving the left frontal, temporal, and parietal lobes. Moderate scattered periventricular and subcortical white matter hypodensities, which are nonspecific, but often seen with chronic microvascular ischemic disease. Please note that MRI with diffusion imaging is more sensitive in the detection of acute ischemic event. VENTRICLES: Mildly dilated ventricles. Compensatory dilatation of the left lateral ventricle as on prior study. CALVARIUM: Unremarkable. PARANASAL SINUSES: Unremarkable as visualized. No significant inflammatory changes. MASTOID AIR CELLS: Unremarkable as visualized. No inflammatory changes. OTHER FINDINGS: None. IMPRESSION: Extensive chronic left MCA distribution encephalomalacia. Acute on chronic infarction cannot be excluded. Please note that MRI with diffusion imaging is more sensitive in the detection of acute ischemic event. Moderate nonspecific matter changes. Mildly dilated ventricles. Compensatory dilatation of the left lateral ventricle as on prior study. Atrophy.
[2018-10-01 19:18] LABS: URINE BILIRUBIN NEGATIVE (NEGATIVE); URINE BLOOD TRACE-LYSED (NEGATIVE); URINE GLUCOSE (UA) NEGATIVE (NEGATIVE); URINE LEUKOCYTE ESTERASE NEGATIVE Leu/uL (NEGATIVE); URINE PROTEIN 100 mg/dL (<30 mg/dL); URINE UROBILINOGEN 0.2 E.U./dL (<1 E.U./dL)
[2018-10-01 19:20] LABS: URINE APPEARANCE CLEAR (CLEAR); URINE COLOR YELLOW (YELLOW)
[2018-10-01 20:02] LABS: URINE BACTERIA SMALL (NEG); URINE RBC 0 - 2 /hpf (0-2); URINE WBC 0 - 2 /hpf (0-6)
[2018-10-01 20:48] VITALS: BP 153/75; PULSE 72; RESP 17; TEMP 98.2; O2SAT 96
--- NOTE | 2018-10-02 09:12 | CT ---
Date of service: 10/01/2018 PROCEDURE: CT Abdomen and Pelvis without intravenous contrast HISTORY: ABDOMINAL PAIN COMPARISON: None. TECHNIQUE: Without contrast.. Contrast dose: Radiation dose: Total exam DLP = 829.57 mGy-cm. This CT exam was performed using one or more of the following dose reduction techniques: Automated exposure control, adjustment of the mA and/or kV according to patient size, and/or use of iterative reconstruction technique. FINDINGS: LOWER THORAX: Unremarkable. LIVER: Unremarkable. No gross lesion or ductal dilatation. GALLBLADDER AND BILE DUCTS: Gallbladder removed PANCREAS: Unremarkable. No gross lesion or ductal dilatation. SPLEEN: Unremarkable. ADRENALS: Unremarkable. No mass. KIDNEYS AND URETERS: Unremarkable. No hydronephrosis. No solid mass. VASCULATURE: Unremarkable. No aortic aneurysm. Aortic calcification BOWEL: Unremarkable. No obstruction. No gross mural thickening. APPENDIX: Unremarkable. Normal appendix. PERITONEUM: Unremarkable. No free fluid. No free air. LYMPH NODES: Unremarkable. No enlarged lymph nodes. BLADDER: Unremarkable. REPRODUCTIVE: Unremarkable. BONES: No acute fracture. OTHER FINDINGS: None. IMPRESSION: No acute intra-abdominal findings
--- NOTE | 2018-10-02 11:03 | CARD ---
APPROVED REPORT Date of service: 10/01/2018 EKG Measurement Heart [id number] <Conclusion> Normal sinus rhythm Left atrial enlargement T wave abnormality, consider inferolateral ischemia No new changes from 03/18/18 Abnormal ECG
== END 2018-10-01 20:40 | disposition home or self-care (01) ==
LOC: ED 16:02
DX: K52.9 Noninfective gastroenteritis and colitis, unspecified (principal); E11.9 Type 2 diabetes mellitus without complications; I10 Essential (primary) hypertension; Z79.4 Long term (current) use of insulin

== ENCOUNTER 2018-12-06 12:04 | Emergency (ER) | payer MEDICARE, MEDICAID ==
[2018-12-06 12:04] VITALS: BMI 27.6
--- NOTE | 2018-12-06 12:25 | ED PDOC ---
Arrival/HPI - General Chief Complaint: Chest Pain Time Seen by Provider: 12/06/18 12:10 Historian: EMS - History of Present Illness Narrative History of Present Illness (Text): 12/06/18 12:22 A 68 year old male, whose past medical history includes CVA (right-side weakness) hypertension, seizure disorder, and diabetes, brought in by EMS from residential to the emergency department complaining of chest tightness. Per EMS, nurse from [facility] [place] reported to him patient stated he was experiencing chest tightness, as well as low grade fever and dizziness. Limited HPI and ROS due to patient's drowsiness. PMD: Dr. Fung Past Medical History - Provider Review Nursing Documentation Reviewed: Yes - Past History Past History: Non-Contributing - Infectious Disease Hx of Infectious Diseases: None - Tetanus Immunization Tetanus Immunization: Unknown - Cardiac Hx Cardiac Disorders: Yes Hx Hypertension: Yes - Pulmonary Hx Respiratory Disorders: No - Neurological Hx Neurological Disorder: Yes HX Cerebrovascular Accident: Yes (Rt side weakness) Hx Paralysis: Yes Hx Seizures: Yes Other/Comment: Aphasia. Epilepsy - HEENT Hx HEENT Disorder: No - Renal Hx Renal Disorder: No - Endocrine/Metabolic Hx Endocrine Disorders: Yes (iddm) Hx Diabetes Mellitus Type 2: Yes - Hematological/Oncological Hx Blood Disorders: No - Integumentary Hx Dermatological Disorder: No - Musculoskeletal/Rheumatological Hx Musculoskeletal Disorders: Yes (right side paralysis) - Gastrointestinal Hx Gastrointestinal Disorders: Yes Hx Gall Bladder Disease: Yes (cholecystitis) - Genitourinary/Gynecological Hx Genitourinary Disorders: No - Psychiatric Hx Psychophysiologic Disorder: No Hx Substance Use: No - Anesthesia Hx Anesthesia: Yes Hx Anesthesia Reactions: No Hx Malignant Hyperthermia: No - Suicidal Assessment Feels Threatened In Home Enviroment: No Family/Social History - Physician Review Nursing Documentation Reviewed: Yes Family/Social History: Unknown Family HX Smoking Status: Unknown If Ever Smoked Hx Alcohol Use: No Hx Substance Use: No Allergies/Home Meds Allergies/Adverse Reactions: Allergies No Known Allergies Allergy (Verified 01/20/18 10:04) Home Medications: Home Meds Medication Instructions Recorded Confirmed Aspirin [Aspirin Chewable] 81 mg PO DAILY 08/30/13 12/06/18 Atorvastatin [Lipitor] 10 mg PO DIN 08/30/13 12/06/18 Insulin Glargine,Hum.rec.anlog 58 unit [facility] 08/30/13 12/06/18 [Lantus] Baclofen [Lioresal] 5 mg PO BID 01/20/18 12/06/18 Clopidogrel [Plavix] 75 mg PO DAILY 01/20/18 12/06/18 Escitalopram [Lexapro] 20 mg PO DAILY 01/20/18 12/06/18 GlipiZIDE [Glucotrol] 5 mg PO DAILY 01/20/18 12/06/18 Melatonin 2 mg PO HS 01/20/18 12/06/18 Metoprolol Succinate XL [Toprol XL] 50 mg PO QPM 01/20/18 12/06/18 Metoprolol Tartrate [Lopressor] 100 mg PO QAM 01/20/18 12/06/18 Pregabalin [Lyrica] 150 mg PO HS 01/20/18 12/06/18 levETIRAcetam [Keppra] 500 mg PO BID 01/20/18 12/06/18 Acetaminophen [Tylenol] 650 mg PO Q6 PRN 12/06/18 12/06/18 Insulin Aspart, Recombinant See Protocol SC BID 12/06/18 12/06/18 [Novolog] Magnesium Hydroxide [Milk Of 30 ml PO PRN PRN 12/06/18 12/06/18 Magnesia] Review of Systems - Review of Systems Systems not reviewed;Unavailable: Other (h/o CVA) Physical Exam Vital Signs Reviewed: Yes Temperature: Afebrile Blood Pressure: Hypertensive Pulse: Regular Respiratory Rate: Normal Appearance: Positive for: Well-Appearing, Non-Toxic, Comfortable Pain Distress: None Mental Status: No: Alert and Oriented X 3 (Alert and Oriented to person) - Systems Exam Head: Present: Atraumatic, Normocephalic Pupils: Present: PERRL Extroacular Muscles: Present: EOMI Conjunctiva: Present: Normal Mouth: Present: Moist Mucous Membranes Respiratory/Chest: Present: Clear to Auscultation, Good Air Exchange. No: Respiratory Distress, Accessory Muscle Use, Decreased Breath Sounds Cardiovascular: Present: Regular Rate and Rhythm, Normal S1, S2. No: Murmurs Abdomen: No: Tenderness, Distention, Peritoneal Signs Upper Extremity: Present: Normal Inspection. No: Cyanosis, Edema Lower Extremity: Present: Normal Inspection. No: Edema Neurological: Present: GCS=15, CN II-XII Intact, Other (right-side weakness s/p CVA). No: Motor Func Grossly Intact (right side weakness; left side normal strength), Normal Sensory Function (right sideness dec sensation; left normal) Skin: Present: Warm, Dry, Normal Color. No: Rashes Psychiatric: Present: Alert Medical Decision Making ED Course and Treatment: 12/06/18 12:24 Impression: 68 year old male with chest tightness, low grade fever, and dizziness as per EMS told by nurse from [facility]. Differential Diagnosis included but are not limited to: Chest Pain r/o ACS vs Pneumonia vs Viral. Plan: -- EKG -- Venous Blood Gas -- Chest X-ray -- Labs -- Blood Culture -- Urine Culture -- Urinalysis -- Reassess and disposition Prior Visits: Notes and results from previous visits were reviewed. Patient was last seen here in the emergency department on 10/01/2018 s/p fall. Patient was transferred to SNF. Progress Notes: EKG: Ordered, reviewed, and independently interpreted the EKG. Rate : 72 BPM Rhythm : NSR Interpretation : No ST-segment elevations or depressions, T-wave inversions at inferior lateral leads, No change from 10.01.18 Comparison : No previous EKG for comparison. 12/06/18 13:30 Patient appears comfortable and in no acute distress at this time. CXR normal with no infiltrate. EKG reviewed. 12/06/2018 13:46 Chest X-ray IMPRESSION: No active disease. Dictator: Clay Downey MD 12/06/18 14:51 Patient currently asymptomatic. Labs, EKG and CXR results reviewed. Discussed th e case and results with Dr. Fung. Will tx Yeast in urine with once dose of Diflucan. He agrees that patient can be discharged back to the residential with f/u. He will f/u on patient. I explained plan with patient. - Scribe Statement The provider has reviewed the documentation as recorded by the Galilea Giles Provider Scribe Attestation: All medical record entries made by the Scribe were at my direction and personally dictated by me. I have reviewed the chart and agree that the record accurately reflects my personal performance of the history, physical exam, medical decision making, and the department course for this patient. I have also personally directed, reviewed, and agree with the discharge instructions and disposition. Disposition/Present on Arrival - Present on Arrival Any Indicators Present on Arrival: Yes History of DVT/PE: No History of Uncontrolled Diabetes: Yes Urinary Catheter: No History of Decub. Ulcer: No History Surgical Site Infection Following: None - Disposition Have Diagnosis and Disposition been Completed?: Yes Diagnosis: Chest pain Disposition Time: 13:31 Patient Plan: Discharge Patient Problems: Current Active Problems Problem Status Onset Chest pain Acute Condition: IMPROVED Discharge Instructions (ExitCare): Chest Pain (ED) Referrals: FAMILY PROVIDER,NO [Primary Care Provider] - Follow up with primary Forms: [employer] (Armenian)
[2018-12-06 12:50] LABS: VENOUS BLOOD GAS BASE EXCESS 0.4 mmol/L (0.0-2.0); VENOUS BLOOD GAS PO2 54 mm/Hg (30-55); VENOUS BLOOD PH 7.31 (7.32-7.43)
[2018-12-06 12:52] LABS: BASO # 0.03 K/mm3 (0.0-2.0); BASO % 0.3 % (0.0-3.0); EOS # 0.2 (0.0-0.7); EOS % 1.7 % (1.5-5.0); GRAN # 6.47 (1.4-6.5); GRAN % 72.2 % (50.0-68.0); HEMOGLOBIN 15.4 g/dL (14.0-18.0); LYMPH # 1.9 (1.2-3.4); LYMPH % 20.8 % (22.0-35.0); MEAN CELL VOLUME 92.4 fl (80.0-105.0); MEAN CORPUSCULAR HEMOGLOBIN 30.6 pg (25.0-35.0); MEAN CORPUSCULAR HGB CONC 33.1 g/dl (31.0-37.0); MEAN PLATELET VOLUME 11.5 fl (7.0-11.0); MONO # 0.5 (0.1-0.6); RBC 5.03 10^6/uL (3.5-6.1); RED CELL DISTRIBUTION WIDTH 13.5 % (11.5-14.5)
[2018-12-06 13:00] LABS: INR 0.95; PROTHROMBIN TIME 10.7 SECONDS (9.4-12.5)
[2018-12-06 13:05] LABS: ALB/GLOB RATIO 1.2 (1.1-1.8); ALBUMIN 4.4 g/dL (3.0-4.8); ALT/SGPT 35 U/L (7-56); AST/SGOT 19 U/L (17-59); BLOOD UREA NITROGEN 27 mg/dL (7-21); CALCIUM 9.8 mg/dL (8.4-10.5); GFR NON-AFRICAN AMERICAN > 60
[2018-12-06 13:16] LABS: TROPONIN I 0.02 ng/mL
[2018-12-06 13:47] LABS: URINE BILIRUBIN NEGATIVE (NEGATIVE); URINE BLOOD TRACE-INTACT (NEGATIVE); URINE GLUCOSE (UA) 100 mg/dL (NEGATIVE); URINE LEUKOCYTE ESTERASE NEGATIVE Leu/uL (NEGATIVE); URINE PROTEIN 30 mg/dL (<30 mg/dL); URINE UROBILINOGEN 0.2 E.U./dL (<1 E.U./dL)
--- NOTE | 2018-12-06 13:49 | RAD ---
Date of service: 12/06/2018 HISTORY: Sepsis Patient COMPARISON: 10/01/2018 FINDINGS: LUNGS: No active pulmonary disease. PLEURA: No significant pleural effusion identified, no pneumothorax apparent. CARDIOVASCULAR: No aortic atherosclerotic calcification present. Normal cardiac size. No pulmonary vascular congestion. OSSEOUS STRUCTURES: No significant abnormalities. VISUALIZED UPPER ABDOMEN: Normal. OTHER FINDINGS: None. IMPRESSION: No active disease.
[2018-12-06 13:54] LABS: URINE APPEARANCE CLEAR (CLEAR); URINE COLOR YELLOW (YELLOW)
[2018-12-06 14:14] LABS: URINE EPITHELIAL CELLS 0 - 2 /hpf (0-5)
[2018-12-06 14:15] LABS: URINE AMORPHOUS SEDIMENT FEW /hpf; URINE BACTERIA MANY /hpf; URINE FINE GRANULAR CAST 0 - 2 /hpf
[2018-12-06 15:47] VITALS: BP 124/53; PULSE 70; RESP 18; TEMP 98.3; O2SAT 96
--- NOTE | 2018-12-07 00:04 | CARD ---
APPROVED REPORT Date of service: 12/06/2018 EKG Measurement Heart [id number] HI 150P66 [id number] <Conclusion> Normal sinus rhythm Left atrial enlargement T wave abnormality, consider inferolateral ischemia Prolonged QT Abnormal ECG
== END 2018-12-06 15:48 | disposition designated cancer center or children's hospital (05) ==
LOC: ED 12:04
DX: R07.9 Chest pain, unspecified (principal); I10 Essential (primary) hypertension; G40.909 Epilepsy, unspecified, not intractable, without status epilepticus; E11.9 Type 2 diabetes mellitus without complications; I69.851 Hemiplegia and hemiparesis following other cerebrovascular disease affecting right dominant side

== ENCOUNTER 2019-02-28 11:37 | Emergency (ER) | payer MEDICARE, MEDICAID ==
[2019-02-28 11:29] VITALS: BMI 29.2
[2019-02-28 11:32] VITALS: RESP 18; O2SAT 100
--- NOTE | 2019-02-28 12:00 | ED PDOC ---
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 penitentiary states patient has been less responsive than usual. Patient was afebrile and given Tylenol 325mg at long term prior to arrival. Patient aphasic at baseline. 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 O2 @ 2L / min reads 97%. Patient is a poor historian and cannot provide any reliable history due to aphasia. PMD is Dr. Carias. 02/28/19 14:49 Symptom Onset: Gradual Symptom Course: Unchanged Activities at Onset: Light Context: Other (Retirement) Past Medical History - Provider Review Nursing Documentation Reviewed: Yes - Past History Past History: Non-Contributing - Infectious Disease Hx of Infectious Diseases: None - Tetanus Immunization Tetanus Immunization: Unknown - Cardiac Hx Cardiac Disorders: Yes Hx Hypertension: Yes - Pulmonary Hx Respiratory Disorders: No - Neurological Hx Neurological Disorder: Yes HX Cerebrovascular Accident: Yes (Rt side weakness) Hx Paralysis: Yes Hx Seizures: Yes Other/Comment: Aphasia. Epilepsy - HEENT Hx HEENT Disorder: No - Renal Hx Renal Disorder: No - Endocrine/Metabolic Hx Endocrine Disorders: Yes (iddm) Hx Diabetes Mellitus Type 2: Yes - Hematological/Oncological Hx Blood Disorders: No - Integumentary Hx Dermatological Disorder: No - Musculoskeletal/Rheumatological Hx Musculoskeletal Disorders: Yes (right side paralysis) - Gastrointestinal Hx Gastrointestinal Disorders: Yes Hx Gall Bladder Disease: Yes (cholecystitis) - Genitourinary/Gynecological Hx Genitourinary Disorders: No - Psychiatric Hx Psychophysiologic Disorder: No Hx Substance Use: No - Anesthesia Hx Anesthesia: Yes Hx Anesthesia Reactions: No Hx Malignant Hyperthermia: No - Suicidal Assessment Feels Threatened In Home Enviroment: No Family/Social History - Physician Review Nursing Documentation Reviewed: Yes Family/Social History: Unknown Family HX Smoking Status: Unknown If Ever Smoked Hx Alcohol Use: No Hx Substance Use: No Allergies/Home Meds Allergies/Adverse Reactions: Allergies No Known Allergies Allergy (Verified 01/20/18 10:04) Home Medications: Home Meds Medication Instructions Recorded Confirmed Aspirin [Aspirin Chewable] 81 mg PO DAILY 08/30/13 12/06/18 Atorvastatin [Lipitor] 10 mg PO DIN 08/30/13 12/06/18 Insulin Glargine,Hum.rec.anlog 58 unit SC HS 08/30/13 12/06/18 [Lantus] Baclofen [Lioresal] 5 mg PO BID 01/20/18 12/06/18 Clopidogrel [Plavix] 75 mg PO DAILY 01/20/18 12/06/18 Escitalopram [Lexapro] 20 mg PO DAILY 01/20/18 12/06/18 GlipiZIDE [Glucotrol] 5 mg PO DAILY 01/20/18 12/06/18 Melatonin 2 mg PO HS 01/20/18 12/06/18 Metoprolol Succinate XL [Toprol XL] 50 mg PO QPM 01/20/18 12/06/18 Metoprolol Tartrate [Lopressor] 100 mg PO QAM 01/20/18 12/06/18 Pregabalin [Lyrica] 150 mg PO HS 01/20/18 12/06/18 levETIRAcetam [Keppra] 500 mg PO BID 01/20/18 12/06/18 Acetaminophen [Tylenol] 650 mg PO Q6 PRN 12/06/18 12/06/18 Insulin Aspart, Recombinant See Protocol SC BID 12/06/18 12/06/18 [Novolog] Magnesium Hydroxide [Milk Of 30 ml PO PRN PRN 12/06/18 12/06/18 Magnesia] Review of Systems - Physician Review All systems were reviewed & negative as marked: Yes - Review of Systems Constitutional: absent: Fevers Eyes: Eye Pain ENT: Other (sinus pain) Respiratory: absent: SOB, Cough Cardiovascular: Chest Pain. absent: ABEL Gastrointestinal: Abdominal Pain. absent: Diarrhea, Nausea, Vomiting Genitourinary Male: absent: Dysuria, Hematuria Musculoskeletal: absent: Arthralgias (no extremity pain), Back Pain, Neck Pain, Myalgias (no extremity pain) Neurological: Headache. absent: Dizziness Physical Exam - Physical Exam Narrative Physical Exam (Text): 02/28/19 11:42 Gen: VS reviewed, alert and awake, well developed, well nourished, nontoxic, mild distress. ENT: dry mucous membranes. normal pharynx. Eye: EOMI, PERRL. Neck: no JVD, supple, no adenopathy. CV: regular rate, regular rhythm, no rubs, no murmur, no gallops, S1, S2, pulses equal and strong. Pulm: no distress, clear to auscultation, no wheeze, no rhonchi, breath sounds equal, no rales. Abd: soft, nontender, no guarding, no rebound, no rigidity, normal bowel sounds. Ext: trace bilateral lower extremity edema. Skin: good color, no rash, no cyanosis. Psych: cannot respond appropriately to questions. Neuro: aphasic. motor intact, sensation intact. Vital Signs Reviewed: Yes Vital Signs Temp Pulse Resp BP Pulse Ox 02/28/19 11:31 97.6 F 60 18 160/83 H 100 Temperature: Afebrile Blood Pressure: Hypertensive Pulse: Regular Respiratory Rate: Normal Appearance: Positive for: Well-Appearing, Non-Toxic, Comfortable Pain Distress: None Mental Status: Positive for: other (Alert and Awake) Medical Decision Making ED Course and Treatment: 02/28/19 12:51 review of data: current ekg consistent with previous readings. current troponin level consistent and unchanged from prior readings. case discussed with dr. carias, will tx for uti, discharge to long term. vitals ok, otherwise labs unremarkable. - EKG Interpretation EKG Interpretation (Text): 02/28/19 12:11 Reviewed EKG, shows: NSR at 62 BPM. Normal QRS. Normal [place]. Lateral ST depressions consistent with ischemia. Interpreted by ED Physician: Yes Type: 12 lead EKG - Scribe Statement The provider has reviewed the documentation as recorded by the Scribjulian Castillo All medical record entries made by the Chrisibe were at my direction and personally dictated by me. I have reviewed the chart and agree that the record accurately reflects my personal performance of the history, physical exam, medical decision making, and the department course for this patient. I have also personally directed, reviewed, and agree with the discharge instructions and disposition. Disposition/Present on Arrival - Present on Arrival Any Indicators Present on Arrival: No History of DVT/PE: No History of Uncontrolled Diabetes: Yes Urinary Catheter: No History Surgical Site Infection Following: None - Disposition Have Diagnosis and Disposition been Completed?: Yes Diagnosis: UTI (urinary tract infection) Disposition: HOME/ ROUTINE Disposition Time: 13:14 Patient Plan: Discharge Patient Problems: Current Active Problems Problem Status Onset UTI (urinary tract infection) Acute Condition: STABLE Prescriptions: Ciprofloxacin [Cipro] 500 mg PO BID 7 Days #14 tab Forms: [employer] (Italian)
[2019-02-28 12:19] LABS: BASO # 0.03 K/mm3 (0.0-2.0); BASO % 0.4 % (0.0-3.0); EOS # 0.2 (0.0-0.7); EOS % 2.3 % (1.5-5.0); HEMOGLOBIN 14.2 g/dL (14.0-18.0); LYMPH # 2.4 (1.2-3.4); LYMPH % 30.3 % (22.0-35.0); MEAN CELL VOLUME 91.6 fl (80.0-105.0); MEAN CORPUSCULAR HEMOGLOBIN 29.8 pg (25.0-35.0); MEAN CORPUSCULAR HGB CONC 32.6 g/dl (31.0-37.0); MEAN PLATELET VOLUME 11.4 fl (7.0-11.0); MONO # 0.3 (0.1-0.6); MONO % 4.1 % (1.0-6.0); RBC 4.76 10^6/uL (3.5-6.1); URINE BILIRUBIN NEGATIVE (NEGATIVE); URINE BLOOD TRACE-INTACT (NEGATIVE); URINE GLUCOSE (UA) 250 mg/dL (NEGATIVE); URINE LEUKOCYTE ESTERASE NEGATIVE Leu/uL (NEGATIVE); URINE PROTEIN 100 mg/dL (<30 mg/dL); URINE UROBILINOGEN 0.2 E.U./dL (<1 E.U./dL); WHITE BLOOD COUNT 7.8 10^3/uL (4.5-11.0)
[2019-02-28 12:25] LABS: URINE APPEARANCE CLEAR (CLEAR); URINE COLOR YELLOW (YELLOW)
[2019-02-28 12:28] LABS: VENOUS BLOOD GAS BASE EXCESS 3.7 mmol/L (0.0-2.0); VENOUS BLOOD GAS PO2 50 mm/Hg (30-55); VENOUS BLOOD PH 7.39 (7.32-7.43)
[2019-02-28 12:29] LABS: URINE AMORPHOUS SEDIMENT FEW /hpf; URINE BACTERIA FEW /hpf; URINE WBC 0 - 2 /hpf (0-6)
[2019-02-28 12:32] LABS: ALB/GLOB RATIO 1.2 (1.1-1.8); ALBUMIN 3.9 g/dL (3.0-4.8); ALT/SGPT 29 U/L (7-56); AST/SGOT 22 U/L (17-59); BLOOD UREA NITROGEN 25 mg/dL (7-21); GFR NON-AFRICAN AMERICAN > 60
[2019-02-28 12:34] LABS: INR 1.01; PARTIAL THROMBOPLASTIN TIME 38.1 Seconds (26.9-38.3); PROTHROMBIN TIME 11.4 SECONDS (9.4-12.5)
[2019-02-28 12:44] LABS: TROPONIN I 0.02 ng/mL
--- NOTE | 2019-02-28 13:12 | RAD ---
Date of service: 02/28/2019 HISTORY: pneumonia COMPARISON: 12/06/2018 TECHNIQUE: 1 view obtained. FINDINGS: LUNGS: Mild peribronchial thickening PLEURA: No significant pleural effusion identified, no pneumothorax apparent. CARDIOVASCULAR: No aortic atherosclerotic calcification present. Normal cardiac size. No pulmonary vascular congestion. OSSEOUS STRUCTURES: No significant abnormalities. VISUALIZED UPPER ABDOMEN: Normal. OTHER FINDINGS: None. IMPRESSION: Mild peribronchial thickening
--- NOTE | 2019-02-28 19:48 | CARD ---
APPROVED REPORT Date of service: 02/28/2019 EKG Measurement Heart [id number] <Conclusion> Normal sinus rhythm Possible Left atrial enlargement ST & T wave abnormality, consider inferolateral ischemia Prolonged QT Abnormal ECG
[2019-02-28 20:46] VITALS: BP 171/69; PULSE 79; TEMP 98
== END 2019-02-28 20:00 | disposition home or self-care (01) ==
LOC: ED 11:37
DX: N39.0 Urinary tract infection, site not specified (principal); I10 Essential (primary) hypertension; E11.9 Type 2 diabetes mellitus without complications; E78.5 Hyperlipidemia, unspecified; I69.320 Aphasia following cerebral infarction; Z79.4 Long term (current) use of insulin